=== PATIENT | male | born 1950 | race African-American/Black ===

== ENCOUNTER 2017-03-17 16:01 | Inpatient (IN) | payer MEDICARE, MEDICAID ==
[~2017-03-17] VITALS: Ht 177.8 cm; Wt 72.6 kg
[~2017-03-17 16:01] MED LIST: ASPIRIN81 M3 PO; LEVAQUIN500 MG ORAL; LISINOPRIL1 GM ORAL; MOM30 ML ORAL; MYLANTA30 M1 GT; NEPHROVITE1 TAB ORAL; NORVIR100 MG ORAL; REYATAZ300 MG ORAL; SEROQUEL300 MG ORAL; TRAZODONE HCL150 MG ORAL; TRUVADA 200 MG1 EAC1 ORAL; TYLENOL650 MG/20. ORAL; VITAMIN D1000 UNI1 ORAL
[2017-03-17 16:30] VITALS: BP 140/90
[2017-03-17] MEDS ORDERED: Zolpidem 5mg tab ORAL PRN (16:45)
[2017-03-17] MEDS ORDERED: Mylanta II UD 30ml ORAL PRN (16:45)
[2017-03-17] MEDS ORDERED: Miralax 17gm pkt ORAL PRN (16:45)
[2017-03-17] MEDS ORDERED: LORazepam Inj 2mg/ml 1ml IV PRN (16:45)
--- NOTE | 2017-03-17 16:57 | Emergency Room Report ---
History of Present Illness General Chief Complaint: Generalized Weakness Source: Medical Record, EMS Present Illness HPI 66-year-old male presents to ED for evaluation. Patient resides in snf. Patient has psychiatric history. Per EMS patient has poor appetite and not eating for the last several weeks. Upon arrival patient showing no signs of distress. No fevers or chills no chest pain shortness of breath. No other. Denies any other associated symptoms Allergies: Coded Allergies: No Known Allergies (Unverified , 06/10/15) Patient History Past Medical History: dementia, other - encephalopathy Past Surgical History: none Pertinent Family History: none Social History: Denies: smoking, alcohol use, drug use Immunizations: UTD Reviewed Nursing Documentation: PMH: Agreed, PSxH: Agreed Nursing Documentation-PMH Hx Hypertension: Yes Hx Neurological Problems: Yes - Encephalapothy Review of Systems All Other Systems: negative except mentioned in HPI Physical Exam Vital Signs Date Time Temp Pulse Resp B/P (MAP) Pulse Ox O2 Delivery O2 Flow Rate FiO2 03/17/17 16:04 97.5 75 20 155/95 96 Room Air Sp02 EP Interpretation: reviewed, normal General Appearance: other - encephalopathy Head: normocephalic, atraumatic Eyes: bilateral eye normal inspection, bilateral eye PERRL Neck: full range of motion, supple/symm/no masses Respiratory: chest non-tender, lungs clear, normal breath sounds, speaking full sentences Cardiovascular #1: regular rate, rhythm, no edema Cardiovascular #2: 2+ carotid (R), 2+ carotid (L), 2+ radial (R), 2+ radial (L) , 2+ dorsalis pedis (R), 2+ dorsalis pedis (L) Gastrointestinal: normal bowel sounds, non tender, soft, non-distended, no guarding, no rebound Rectal: deferred Genitourinary: normal inspection, no CVA tenderness Musculoskeletal: back normal, gait/station normal, normal range of motion, non- tender Neurologic: other - dementia Psychiatric: other - dementia Reflexes: 3+ bicep (R), 3+ bicep (L), 3+ tricep (R), 3+ tricep (L), 3+ knee (R) , 3+ knee (L) Skin: normal color, no rash, warm/dry, well hydrated Lymphatic: no adenopathy Medical Decision Making Diagnostic Impression: Primary Impression: Generalized weakness Additional Impressions: Dehydration Failure to thrive Qualified Codes: R62.7 - Adult failure to thrive ER Course Hospital Course 66-year-old male presenting to ED with generalized weakness, poor appetite Differential diagnoses include: Pneumonia, UTI, sepsis, dehydration, [place]/ unstable angina, failure to thrive Clinical course Patient placed on stretcher. After initial history and physical, I ordered labs , IV fluids, EKG, Labs - no leukocytosis, hb/hct stable, Na 147, EKG - NSR, no acute ischemic changes interpreted by me Case discussed with Dr Nation and they agreed to admit patient to their service for further care and support I feel this is a highly complex case requiring extensive working including EKG/ Rhythm strip, Xray/CT/US, Blood/urine lab work, repeat exams while in ED, and administration of strong opiates/narcotics for pain control, admission to hospital or close patient follow up. Diagnosis - generalized weakness, dehydration, FTT Patient admitted to floor in serious condition Labs Test 03/17/17 16:47 White Blood Count 6.6 K/UL (4.8-10.8) Red Blood Count 4.35 M/UL (4.70-6.10) Hemoglobin 14.6 G/DL (14.2-18.0) Hematocrit 43.3 % (42.0-52.0) Mean Corpuscular Volume 100 FL (80-99) Mean Corpuscular Hemoglobin 33.6 PG (27.0-31.0) Mean Corpuscular Hemoglobin Concent 33.7 G/DL (32.0-36.0) Red Cell Distribution Width 11.3 % (11.6-14.8) Platelet Count 190 K/UL (150-450) Mean Platelet Volume 5.0 FL (6.5-10.1) Neutrophils (%) (Auto) 56.1 % (45.0-75.0) Lymphocytes (%) (Auto) 35.1 % (20.0-45.0) Monocytes (%) (Auto) 6.2 % (1.0-10.0) Eosinophils (%) (Auto) 1.9 % (0.0-3.0) Basophils (%) (Auto) 0.7 % (0.0-2.0) Sodium Level 147 MMOL/L (136-145) Potassium Level 4.0 MMOL/L (3.5-5.1) Chloride Level 108 MMOL/L (98-107) Carbon Dioxide Level 31 MMOL/L (21-32) Anion Gap 8 mmol/L (5-15) Blood Urea Nitrogen 16 mg/dL (7-18) Creatinine 1.0 MG/DL (0.55-1.30) Estimat Glomerular Filtration Rate > 60 mL/min (>60) Glucose Level 89 MG/DL (74-106) Calcium Level 10.1 MG/DL (8.5-10.1) Total Bilirubin 0.5 MG/DL (0.2-1.0) Aspartate Amino Transf (AST/SGOT) 35 U/L (15-37) Alanine Aminotransferase (ALT/SGPT) 42 U/L (12-78) Alkaline Phosphatase 82 U/L (46-116) Troponin I 0.000 ng/mL (0.000-0.056) Total Protein 7.6 G/DL (6.4-8.2) Albumin 3.6 G/DL (3.4-5.0) Globulin 4.0 g/dL Albumin/Globulin Ratio 0.9 (1.0-2.7) Lipase 59 U/L (73-393) EKG Diagnostic Results Rate: normal Rhythm: NSR ST Segments: no acute changes ASA given to the pt in ED: No Rhythm Strip Diag. Results EP Interpretation: yes Rhythm: NSR, no PVC's, no ectopy Last Vital Signs Date Time Temp Pulse Resp B/P (MAP) Pulse Ox O2 Delivery O2 Flow Rate FiO2 03/17/17 16:04 97.5 75 20 155/95 96 Room Air Status: improved Disposition: ADMITTED INPATIENT Condition: Serious Referrals: YONATAN NATION (PCP) BRANDON BRAGA M.D. Mar 17, 2017 16:57
[2017-03-17 17:02] LABS: BASOPHILS % (AUTO) 0.7 % (0.0-2.0); EOSINOPHILS % (AUTO) 1.9 % (0.0-3.0); LYMPHOCYTES % (AUTO) 35.1 % (20.0-45.0); MEAN CORPUSCULAR HEMOGLOBIN 33.6 PG (27.0-31.0); MEAN CORPUSCULAR HGB CONC 33.7 G/DL (32.0-36.0); MEAN CORPUSCULAR VOLUME 100 FL (80-99); MONOCYTES % (AUTO) 6.2 % (1.0-10.0); NEUTROPHILS % (AUTO) 56.1 % (45.0-75.0); PLATELET COUNT 190 K/UL (150-450); RED BLOOD COUNT 4.35 M/UL (4.70-6.10); RED CELL DISTRIBUTION WIDTH 11.3 % (11.6-14.8); WHITE BLOOD COUNT 6.6 K/UL (4.8-10.8)
[2017-03-17 17:30] LABS: ALANINE AMINOTRANSFERASE 42 U/L (12-78); ALBUMIN/GLOBULIN RATIO 0.9 (1.0-2.7); ANION GAP 8 mmol/L (5-15); ASPARTATE AMINO TRANSFERASE 35 U/L (15-37); CALCIUM 10.1 MG/DL (8.5-10.1); CARBON DIOXIDE 31 MMOL/L (21-32); CHLORIDE 108 MMOL/L (98-107); GLOMERULAR FILTRATION RATE > 60 mL/min (>60); LIPASE 59 U/L (73-393); SODIUM 147 MMOL/L (136-145); TOTAL PROTEIN 7.6 G/DL (6.4-8.2)
[2017-03-17 17:37] VITALS: BP 106/42
[2017-03-17 18:24] VITALS: BP 120/81
[2017-03-17 20:00] VITALS: BP 132/92
[2017-03-17] MEDS: TraZODone HCl 25 mg tablet ORAL SCH (21:52)
[2017-03-17] MEDS: Heparin 5000 units/ml inj SUBQ SCH (21:55)
--- NOTE | 2017-03-17 22:40 | Infectious Diseases Prog Note ---
Assessment/Plan Problems: (1) HIV (human immunodeficiency virus infection) Assessment & Plan: will check his viral load and CD4 to assess his compliance with HIV meds and to rule out resistant to his current regimen , will screen for syphilis too , resume truvada and boosted darunavir . (2) Generalized weakness Assessment & Plan: recommend TSH check and PT/OT EVAL (3) Failure to thrive Assessment & Plan: will screen for syphilis and hypothyroidism Subjective Allergies: Coded Allergies: No Known Allergies (Unverified , 06/10/15) Objective Vital Signs Last 24 Hour Vital Signs Date Time Temp Pulse Resp B/P (MAP) Pulse Ox O2 Delivery O2 Flow Rate FiO2 03/17/17 20:00 97.7 80 21 132/92 95 03/17/17 18:27 91 03/17/17 18:24 97.0 18 120/81 93 Room Air 03/17/17 17:37 98.0 88 20 106/42 97 Room Air 03/17/17 17:37 97.5 88 20 106/42 97 Room Air 03/17/17 16:30 98.5 85 20 140/90 99 Room Air 03/17/17 16:04 97.5 75 20 155/95 96 Room Air Height (Feet): 5 Height (Inches): 10.00 Weight (Pounds): 180 Laboratory Tests Test 03/17/17 16:47 White Blood Count 6.6 K/UL (4.8-10.8) Red Blood Count 4.35 M/UL (4.70-6.10) L Hemoglobin 14.6 G/DL (14.2-18.0) Hematocrit 43.3 % (42.0-52.0) Mean Corpuscular Volume 100 FL (80-99) H Mean Corpuscular Hemoglobin 33.6 PG (27.0-31.0) H Mean Corpuscular Hemoglobin Concent 33.7 G/DL (32.0-36.0) Red Cell Distribution Width 11.3 % (11.6-14.8) L Platelet Count 190 K/UL (150-450) Mean Platelet Volume 5.0 FL (6.5-10.1) L Neutrophils (%) (Auto) 56.1 % (45.0-75.0) Lymphocytes (%) (Auto) 35.1 % (20.0-45.0) Monocytes (%) (Auto) 6.2 % (1.0-10.0) Eosinophils (%) (Auto) 1.9 % (0.0-3.0) Basophils (%) (Auto) 0.7 % (0.0-2.0) Sodium Level 147 MMOL/L (136-145) H Potassium Level 4.0 MMOL/L (3.5-5.1) Chloride Level 108 MMOL/L (98-107) H Carbon Dioxide Level 31 MMOL/L (21-32) Anion Gap 8 mmol/L (5-15) Blood Urea Nitrogen 16 mg/dL (7-18) Creatinine 1.0 MG/DL (0.55-1.30) Estimat Glomerular Filtration Rate > 60 mL/min (>60) Glucose Level 89 MG/DL (74-106) Calcium Level 10.1 MG/DL (8.5-10.1) Total Bilirubin 0.5 MG/DL (0.2-1.0) Aspartate Amino Transf (AST/SGOT) 35 U/L (15-37) Alanine Aminotransferase (ALT/SGPT) 42 U/L (12-78) Alkaline Phosphatase 82 U/L (46-116) Troponin I 0.000 ng/mL (0.000-0.056) Total Protein 7.6 G/DL (6.4-8.2) Albumin 3.6 G/DL (3.4-5.0) Globulin 4.0 g/dL Albumin/Globulin Ratio 0.9 (1.0-2.7) L Lipase 59 U/L (73-393) L Current Medications Medications (Trade) Dose Ordered Sig/Kaylin Route PRN Reason Start Time Stop Time Status Last Admin Dose Admin Acetaminophen (Tylenol) 650 mg Q4H PRN ORAL temp >100.5 F 03/17/17 16:45 04/16/17 16:44 Al Hydroxide/Mg Hydroxide (Mylanta II) 30 ml Q6H PRN ORAL dyspepsia 03/17/17 16:45 04/16/17 16:44 Dextrose (Dextrose 50%) STAT PRN IV Hypoglycemia 03/17/17 16:45 04/16/17 16:44 Emtricitabine/ Tenofovir (Truvada 200/ 300mg) 1 tab DAILY ORAL 03/18/17 09:00 04/17/17 08:59 UNV Heparin Sodium (Porcine) (Heparin 5000 units/ml) 5,000 units EVERY 12 HOURS SUBQ 03/17/17 21:00 04/16/17 20:59 03/17/17 21:55 Lorazepam (Ativan 2mg/ml 1ml) 0.5 mg Q4H PRN IV For Anxiety 03/17/17 16:45 03/24/17 16:44 Ondansetron HCl (Zofran) 4 mg Q6H PRN IVP Nausea & Vomiting 03/17/17 16:45 04/16/17 16:44 Polyethylene Glycol (Miralax) 17 gm HSPRN PRN ORAL Constipation 03/17/17 16:45 04/16/17 16:44 Ritonavir (Norvir) 100 mg DAILY ORAL 03/18/17 09:00 04/17/17 08:59 UNV Trazodone HCl (Desyrel) 25 mg BEDTIME ORAL 03/17/17 21:00 04/16/17 20:59 03/17/17 21:52 Zolpidem Tartrate (Ambien) 5 mg HSPRN PRN ORAL Insomnia 03/17/17 16:45 03/24/17 16:44 Caroline Gold M.D. Mar 17, 2017 22:40
[2017-03-18] VITALS: BP 134/73
[2017-03-18 04:00] VITALS: BP 130/76
[2017-03-18 06:58] LABS: BASOPHILS % (AUTO) 0.6 % (0.0-2.0); EOSINOPHILS % (AUTO) 0.6 % (0.0-3.0); LYMPHOCYTES % (AUTO) 22.4 % (20.0-45.0); MEAN CORPUSCULAR HEMOGLOBIN 35.1 PG (27.0-31.0); MEAN CORPUSCULAR HGB CONC 35.3 G/DL (32.0-36.0); MEAN CORPUSCULAR VOLUME 99 FL (80-99); MEAN PLATELET VOLUME 5.4 FL (6.5-10.1); MONOCYTES % (AUTO) 5.4 % (1.0-10.0); PLATELET COUNT 174 K/UL (150-450); RED BLOOD COUNT 3.86 M/UL (4.70-6.10); RED CELL DISTRIBUTION WIDTH 11.3 % (11.6-14.8); WHITE BLOOD COUNT 7.8 K/UL (4.8-10.8)
[2017-03-18 07:21] LABS: ALANINE AMINOTRANSFERASE 39 U/L (12-78); ALBUMIN/GLOBULIN RATIO 0.8 (1.0-2.7); ANION GAP 11 mmol/L (5-15); ASPARTATE AMINO TRANSFERASE 36 U/L (15-37); CALCIUM 8.9 MG/DL (8.5-10.1); CARBON DIOXIDE 28 MMOL/L (21-32); CHLORIDE 108 MMOL/L (98-107); CREATININE 0.9 MG/DL (0.55-1.30); GLOMERULAR FILTRATION RATE > 60 mL/min (>60); POTASSIUM 3.2 MMOL/L (3.5-5.1); SODIUM 147 MMOL/L (136-145); TOTAL PROTEIN 7.1 G/DL (6.4-8.2)
[2017-03-18 07:27] LABS: CHOLESTEROL 110 MG/DL (< 200); CHOLESTEROL/HDL RATIO 2.4 (3.3-4.4); THYROID STIMULATING HORMONE 0.745 uiU/mL (0.360-3.740)
[2017-03-18 08:00] VITALS: BP 148/76
[2017-03-18] MEDS ORDERED: Flu Vaccine Quadrivalent 0.5ml IM ONE (09:00)
[2017-03-18] MEDS: Heparin 5000 units/ml inj SUBQ SCH ×2 (10:56→21:20)
[2017-03-18 12:00] VITALS: BP 144/73
[2017-03-18] MEDS: Ritonavir 100mg tab ORAL SCH (13:00)
--- NOTE | 2017-03-18 13:36 | Infectious Diseases Prog Note ---
Assessment/Plan Problems: (1) HIV (human immunodeficiency virus infection) Assessment & Plan: await viral load and CD4 counts to assess his compliance with HIV meds and to rule out resistant to his current regimen , screening for syphilis is pending too , resume truvada and boosted darunavir . (2) Generalized weakness Assessment & Plan: recommend TSH check and PT/OT EVAL (3) Failure to thrive Assessment & Plan: will screen for syphilis and hypothyroidism Subjective ROS Limited/Unobtainable: Yes Allergies: Coded Allergies: No Known Allergies (Unverified , 06/10/15) Subjective he was lying in bed, alert, nonverbal, dosen't follow commands, NAD , has left hand bruises with bleeding Objective Vital Signs Last 24 Hour Vital Signs Date Time Temp Pulse Resp B/P (MAP) Pulse Ox O2 Delivery O2 Flow Rate FiO2 03/18/17 12:00 98.2 99 18 144/73 96 Room Air 03/18/17 08:00 97.9 89 18 148/76 92 Room Air 03/18/17 04:00 97.7 82 20 130/76 94 Room Air 03/18/17 00:00 97.9 87 21 134/73 93 Room Air 03/17/17 20:00 97.7 80 21 132/92 95 03/17/17 18:27 91 03/17/17 18:24 97.0 18 120/81 93 Room Air 03/17/17 17:37 98.0 88 20 106/42 97 Room Air 03/17/17 17:37 97.5 88 20 106/42 97 Room Air 03/17/17 16:30 98.5 85 20 140/90 99 Room Air 03/17/17 16:04 97.5 75 20 155/95 96 Room Air Height (Feet): 5 Height (Inches): 10.00 Weight (Pounds): 160 General Appearance: WD/WN, no acute distress HEENT: normocephalic, atraumatic, anicteric, mucous membranes moist Respiratory/Chest: chest wall non-tender, lungs clear, normal breath sounds, no respiratory distress, no accessory muscle use Cardiovascular: normal peripheral pulses, normal rate, regular rhythm, no gallop/murmur, no JVD Abdomen: normal bowel sounds, soft, non tender, no organomegaly, non distended , no mass, no scars Extremities: no cyanosis, no clubbing Skin: no rash, no lesions, no ulcers, other - bruises Neurologic/Psychiatric: alert, oriented x 3 Laboratory Tests Test 03/17/17 16:47 03/18/17 05:30 White Blood Count 6.6 K/UL (4.8-10.8) 7.8 K/UL (4.8-10.8) Red Blood Count 4.35 M/UL (4.70-6.10) L 3.86 M/UL (4.70-6.10) L Hemoglobin 14.6 G/DL (14.2-18.0) 13.5 G/DL (14.2-18.0) L Hematocrit 43.3 % (42.0-52.0) 38.3 % (42.0-52.0) L Mean Corpuscular Volume 100 FL (80-99) H 99 FL (80-99) Mean Corpuscular Hemoglobin 33.6 PG (27.0-31.0) H 35.1 PG (27.0-31.0) H Mean Corpuscular Hemoglobin Concent 33.7 G/DL (32.0-36.0) 35.3 G/DL (32.0-36.0) Red Cell Distribution Width 11.3 % (11.6-14.8) L 11.3 % (11.6-14.8) L Platelet Count 190 K/UL (150-450) 174 K/UL (150-450) Mean Platelet Volume 5.0 FL (6.5-10.1) L 5.4 FL (6.5-10.1) L Neutrophils (%) (Auto) 56.1 % (45.0-75.0) 71.0 % (45.0-75.0) Lymphocytes (%) (Auto) 35.1 % (20.0-45.0) 22.4 % (20.0-45.0) Monocytes (%) (Auto) 6.2 % (1.0-10.0) 5.4 % (1.0-10.0) Eosinophils (%) (Auto) 1.9 % (0.0-3.0) 0.6 % (0.0-3.0) Basophils (%) (Auto) 0.7 % (0.0-2.0) 0.6 % (0.0-2.0) Sodium Level 147 MMOL/L (136-145) H 147 MMOL/L (136-145) H Potassium Level 4.0 MMOL/L (3.5-5.1) 3.2 MMOL/L (3.5-5.1) L Chloride Level 108 MMOL/L (98-107) H 108 MMOL/L (98-107) H Carbon Dioxide Level 31 MMOL/L (21-32) 28 MMOL/L (21-32) Anion Gap 8 mmol/L (5-15) 11 mmol/L (5-15) Blood Urea Nitrogen 16 mg/dL (7-18) 17 mg/dL (7-18) Creatinine 1.0 MG/DL (0.55-1.30) 0.9 MG/DL (0.55-1.30) Estimat Glomerular Filtration Rate > 60 mL/min (>60) > 60 mL/min (>60) Glucose Level 89 MG/DL (74-106) 70 MG/DL (74-106) L Calcium Level 10.1 MG/DL (8.5-10.1) 8.9 MG/DL (8.5-10.1) Total Bilirubin 0.5 MG/DL (0.2-1.0) 0.7 MG/DL (0.2-1.0) Aspartate Amino Transf (AST/SGOT) 35 U/L (15-37) 36 U/L (15-37) Alanine Aminotransferase (ALT/SGPT) 42 U/L (12-78) 39 U/L (12-78) Alkaline Phosphatase 82 U/L (46-116) 77 U/L (46-116) Troponin I 0.000 ng/mL (0.000-0.056) Total Protein 7.6 G/DL (6.4-8.2) 7.1 G/DL (6.4-8.2) Albumin 3.6 G/DL (3.4-5.0) 3.2 G/DL (3.4-5.0) L Globulin 4.0 g/dL 3.9 g/dL Albumin/Globulin Ratio 0.9 (1.0-2.7) L 0.8 (1.0-2.7) L Lipase 59 U/L (73-393) L Lymphocytes Pending Hemoglobin A1c 5.0 % (4.3-6.0) Triglycerides Level 81 MG/DL (0-200) Cholesterol Level 110 MG/DL (< 200) LDL Cholesterol 41 mg/dL (<100) HDL Cholesterol 46 MG/DL (40-60) Cholesterol/HDL Ratio 2.4 (3.3-4.4) L Thyroid Stimulating Hormone (TSH) 0.745 uiU/mL (0.360-3.740) Percent CD3 Cells Pending Absolute CD3 Count Pending Percent CD4 Cells Pending Absolute CD4 Count Pending T-Lymphocyte CD4/CD8 Ratio Pending Percent CD8 Cells Pending Absolute CD8 Count Pending Rapid Plasma Reagin Pending HIV-1 RNA (PCR) log10 Value Pending HIV-1 RNA Ultraquantitative (PCR) Pending Current Medications Medications (Trade) Dose Ordered Sig/Kaylin Route PRN Reason Start Time Stop Time Status Last Admin Dose Admin Acetaminophen (Tylenol) 650 mg Q4H PRN ORAL temp >100.5 F 03/17/17 16:45 04/16/17 16:44 Al Hydroxide/Mg Hydroxide (Mylanta II) 30 ml Q6H PRN ORAL dyspepsia 03/17/17 16:45 04/16/17 16:44 Darunavir (Prezista) 800 mg DAILY ORAL 03/18/17 09:00 04/17/17 08:59 03/18/17 10:53 Dextrose (Dextrose 50%) STAT PRN IV Hypoglycemia 03/17/17 16:45 04/16/17 16:44 Emtricitabine/ Tenofovir (Truvada 200/ 300mg) 1 tab DAILY ORAL 03/18/17 13:00 04/17/17 12:59 Heparin Sodium (Porcine) (Heparin 5000 units/ml) 5,000 units EVERY 12 HOURS SUBQ 03/17/17 21:00 04/16/17 20:59 03/18/17 10:56 Lorazepam (Ativan 2mg/ml 1ml) 0.5 mg Q4H PRN IV For Anxiety 03/17/17 16:45 03/24/17 16:44 Ondansetron HCl (Zofran) 4 mg Q6H PRN IVP Nausea & Vomiting 03/17/17 16:45 04/16/17 16:44 Polyethylene Glycol (Miralax) 17 gm HSPRN PRN ORAL Constipation 03/17/17 16:45 04/16/17 16:44 Ritonavir (Norvir) 100 mg DAILY ORAL 03/18/17 13:00 04/17/17 12:59 Trazodone HCl (Desyrel) 25 mg BEDTIME ORAL 03/17/17 21:00 04/16/17 20:59 03/17/17 21:52 Zolpidem Tartrate (Ambien) 5 mg HSPRN PRN ORAL Insomnia 03/17/17 16:45 03/24/17 16:44 Caroline Gold M.D. Mar 18, 2017 13:36
--- NOTE | 2017-03-18 15:44 | Consultation ---
History of Present Illness General Date patient seen: Mar 18, 2017 Chief Complaint: Generalized Weakness Reason for Consultation: inpatient management Present Illness HPI 66-year-old male with hx of HIV, dementia, psychiatric disorder, group home resident presents to ED for evaluation of poor appetite and not eating for the last several weeks. Upon arrival patient showing no signs of distress. No fevers or chills no chest pain shortness of breath. Pt can not give any history and all information is obtained form the medical records. He looks awake and trying to talk without making any sense. Allergies: Coded Allergies: No Known Allergies (Unverified , 06/10/15) Medication History Scheduled Atazanavir Sulfate (Reyataz), 300 MG ORAL DAILY, (Reported) Cholecalciferol (Vitamin D3)* (Vitamin D*), 1,000 UNIT ORAL DAILY, (Reported) Emtricitabine/Tenofovir 200-300MG* (Truvada 200-300MG*), 1 TAB ORAL DAILY, ( Reported) Levofloxacin* (Levaquin*), 500 MG ORAL DAILY Lisinopril (Lisinopril), 20 MG ORAL DAILY, (Reported) Quetiapine Fumarate (Seroquel), 150 MG ORAL HS, (Reported) Ritonavir* (Norvir*), 100 MG ORAL DAILY, (Reported) Trazodone* (Trazodone*), 25 MG ORAL BEDTIME, (Reported) Vitamin B Cmplx/Vit C/Folic AC (Nephro-Bianca Tablet), 1 TAB ORAL DAILY, (Reported ) Scheduled PRN Acetaminophen (Acetaminophen), 650 MG ORAL Q6H PRN for Prn Headache/Temp > 101, (Reported) Magnesium Hydroxide (Milk of Magnesia), 30 ML ORAL Q6HR PRN for Constipation, ( Reported) Miscellaneous Medications Al Hydroxide/mg Hydroxide (Mag-Al Liquid), 30 ML GT, (Reported) Aspirin (Aspirin), 81 MG PO, (Reported) Patient History Healthcare decision maker N Resuscitation status Full Code Advanced Directive on File Past Medical/Surgical History Past Medical/Surgical History: (1) HIV (human immunodeficiency virus infection) (2) Gilbert disease Review of Systems Constitutional: Reports: no symptoms, malaise Physical Exam General Appearance: cachetic Lines, tubes and drains: peripheral, central line HEENT: normocephalic, atraumatic Neck: non-tender, normal alignment, supple Respiratory/Chest: chest wall non-tender, lungs clear, normal breath sounds Cardiovascular/Chest: normal peripheral pulses, normal rate, regular rhythm Abdomen: normal bowel sounds, soft Genitourinary/Rectal: normal genital exam, normal rectal exam Extremities: normal range of motion, non-tender Neurologic: cardiac monitor II-XII grossly normal, abnormal gait Last 24 Hour Vital Signs Date Time Temp Pulse Resp B/P (MAP) Pulse Ox O2 Delivery O2 Flow Rate FiO2 03/18/17 12:00 98.2 99 18 144/73 96 Room Air 03/18/17 08:00 97.9 89 18 148/76 92 Room Air 03/18/17 04:00 97.7 82 20 130/76 94 Room Air 03/18/17 00:00 97.9 87 21 134/73 93 Room Air 03/17/17 20:00 97.7 80 21 132/92 95 03/17/17 18:27 91 03/17/17 18:24 97.0 18 120/81 93 Room Air 03/17/17 17:37 98.0 88 20 106/42 97 Room Air 03/17/17 17:37 97.5 88 20 106/42 97 Room Air 03/17/17 16:30 98.5 85 20 140/90 99 Room Air 03/17/17 16:04 97.5 75 20 155/95 96 Room Air Laboratory Tests Test 03/17/17 16:47 03/18/17 05:30 White Blood Count 6.6 K/UL (4.8-10.8) 7.8 K/UL (4.8-10.8) Red Blood Count 4.35 M/UL (4.70-6.10) L 3.86 M/UL (4.70-6.10) L Hemoglobin 14.6 G/DL (14.2-18.0) 13.5 G/DL (14.2-18.0) L Hematocrit 43.3 % (42.0-52.0) 38.3 % (42.0-52.0) L Mean Corpuscular Volume 100 FL (80-99) H 99 FL (80-99) Mean Corpuscular Hemoglobin 33.6 PG (27.0-31.0) H 35.1 PG (27.0-31.0) H Mean Corpuscular Hemoglobin Concent 33.7 G/DL (32.0-36.0) 35.3 G/DL (32.0-36.0) Red Cell Distribution Width 11.3 % (11.6-14.8) L 11.3 % (11.6-14.8) L Platelet Count 190 K/UL (150-450) 174 K/UL (150-450) Mean Platelet Volume 5.0 FL (6.5-10.1) L 5.4 FL (6.5-10.1) L Neutrophils (%) (Auto) 56.1 % (45.0-75.0) 71.0 % (45.0-75.0) Lymphocytes (%) (Auto) 35.1 % (20.0-45.0) 22.4 % (20.0-45.0) Monocytes (%) (Auto) 6.2 % (1.0-10.0) 5.4 % (1.0-10.0) Eosinophils (%) (Auto) 1.9 % (0.0-3.0) 0.6 % (0.0-3.0) Basophils (%) (Auto) 0.7 % (0.0-2.0) 0.6 % (0.0-2.0) Sodium Level 147 MMOL/L (136-145) H 147 MMOL/L (136-145) H Potassium Level 4.0 MMOL/L (3.5-5.1) 3.2 MMOL/L (3.5-5.1) L Chloride Level 108 MMOL/L (98-107) H 108 MMOL/L (98-107) H Carbon Dioxide Level 31 MMOL/L (21-32) 28 MMOL/L (21-32) Anion Gap 8 mmol/L (5-15) 11 mmol/L (5-15) Blood Urea Nitrogen 16 mg/dL (7-18) 17 mg/dL (7-18) Creatinine 1.0 MG/DL (0.55-1.30) 0.9 MG/DL (0.55-1.30) Estimat Glomerular Filtration Rate > 60 mL/min (>60) > 60 mL/min (>60) Glucose Level 89 MG/DL (74-106) 70 MG/DL (74-106) L Calcium Level 10.1 MG/DL (8.5-10.1) 8.9 MG/DL (8.5-10.1) Total Bilirubin 0.5 MG/DL (0.2-1.0) 0.7 MG/DL (0.2-1.0) Aspartate Amino Transf (AST/SGOT) 35 U/L (15-37) 36 U/L (15-37) Alanine Aminotransferase (ALT/SGPT) 42 U/L (12-78) 39 U/L (12-78) Alkaline Phosphatase 82 U/L (46-116) 77 U/L (46-116) Troponin I 0.000 ng/mL (0.000-0.056) Total Protein 7.6 G/DL (6.4-8.2) 7.1 G/DL (6.4-8.2) Albumin 3.6 G/DL (3.4-5.0) 3.2 G/DL (3.4-5.0) L Globulin 4.0 g/dL 3.9 g/dL Albumin/Globulin Ratio 0.9 (1.0-2.7) L 0.8 (1.0-2.7) L Lipase 59 U/L (73-393) L Lymphocytes Pending Hemoglobin A1c 5.0 % (4.3-6.0) Triglycerides Level 81 MG/DL (0-200) Cholesterol Level 110 MG/DL (< 200) LDL Cholesterol 41 mg/dL (<100) HDL Cholesterol 46 MG/DL (40-60) Cholesterol/HDL Ratio 2.4 (3.3-4.4) L Thyroid Stimulating Hormone (TSH) 0.745 uiU/mL (0.360-3.740) Percent CD3 Cells Pending Absolute CD3 Count Pending Percent CD4 Cells Pending Absolute CD4 Count Pending T-Lymphocyte CD4/CD8 Ratio Pending Percent CD8 Cells Pending Absolute CD8 Count Pending Rapid Plasma Reagin Pending HIV-1 RNA (PCR) log10 Value Pending HIV-1 RNA Ultraquantitative (PCR) Pending Height (Feet): 5 Height (Inches): 10.00 Weight (Pounds): 160 Medications Current Medications Medications (Trade) Dose Ordered Sig/Kaylin Route PRN Reason Start Time Stop Time Status Last Admin Dose Admin Acetaminophen (Tylenol) 650 mg Q4H PRN ORAL temp >100.5 F 03/17/17 16:45 04/16/17 16:44 Al Hydroxide/Mg Hydroxide (Mylanta II) 30 ml Q6H PRN ORAL dyspepsia 03/17/17 16:45 04/16/17 16:44 Darunavir (Prezista) 800 mg DAILY ORAL 03/18/17 09:00 04/17/17 08:59 03/18/17 10:53 Dextrose (Dextrose 50%) STAT PRN IV Hypoglycemia 03/17/17 16:45 04/16/17 16:44 Emtricitabine/ Tenofovir (Truvada 200/ 300mg) 1 tab DAILY ORAL 03/18/17 13:00 04/17/17 12:59 Heparin Sodium (Porcine) (Heparin 5000 units/ml) 5,000 units EVERY 12 HOURS SUBQ 03/17/17 21:00 04/16/17 20:59 03/18/17 10:56 Lorazepam (Ativan 2mg/ml 1ml) 0.5 mg Q4H PRN IV For Anxiety 03/17/17 16:45 03/24/17 16:44 Ondansetron HCl (Zofran) 4 mg Q6H PRN IVP Nausea & Vomiting 03/17/17 16:45 04/16/17 16:44 Polyethylene Glycol (Miralax) 17 gm HSPRN PRN ORAL Constipation 03/17/17 16:45 04/16/17 16:44 Ritonavir (Norvir) 100 mg DAILY ORAL 03/18/17 13:00 04/17/17 12:59 Trazodone HCl (Desyrel) 25 mg BEDTIME ORAL 03/17/17 21:00 04/16/17 20:59 03/17/17 21:52 Zolpidem Tartrate (Ambien) 5 mg HSPRN PRN ORAL Insomnia 03/17/17 16:45 03/24/17 16:44 Assessment/Plan Problem List: (1) Failure to thrive ICD Codes: ONB5430 - Reserved for [id number] codable problem concepts SNOMED: 60438417 Qualifiers: Qualified Codes: R62.7 - Adult failure to thrive (2) Generalized weakness ICD Codes: R53.1 - Weakness SNOMED: 46883724 (3) Dehydration ICD Codes: E86.0 - Dehydration SNOMED: 34863079 (4) Episode of generalized weakness ICD Codes: R53.1 - Weakness SNOMED: 58562063 (5) UTI (urinary tract infection) ICD Codes: N39.0 - Urinary tract infection, site not specified SNOMED: 60236343 (6) HIV (human immunodeficiency virus infection) ICD Codes: B20 - Human immunodeficiency virus [HIV] disease SNOMED: 67004162 Assessment/Plan calorie count swallow study neuro evaluation psych evaluation might need PEG feeding f/u HIV status symptomatic treatment. [place] COLON Mar 18, 2017 15:44
[2017-03-18 16:00] VITALS: BP 152/61
--- NOTE | 2017-03-18 16:12 | GI Initial Consult Note ---
Davalos,Claudia Migel N.P. 03/18/17 1612: History of Present Illness General Date patient seen: Mar 18, 2017 Time patient seen: 16:02 Reason for Hospitalization: Generalized Weakness Referring physician: [place] REGALADO Reason for Consultation: VOMITING Present Illness HPI 66-year-old male presents to ED for evaluation. Patient resides in assisted. Patient has psychiatric history. Per EMS patient has poor appetite and not eating for the last several weeks. Upon arrival patient showing no signs of distress. No fevers or chills no chest pain shortness of breath. No other. Denies any other associated symptoms. GI consulted for vomiting. HPI as noted above. ROS limited, patient is non verbal. Seen on floor, awake with no active s/sx of N/V/D. Presents today with Hx of tobacco use. Unknown history of endoscopic/colonoscopy. Home Meds Active Scripts Levofloxacin* (LEVAQUIN*) 500 Mg Tablet, 500 MG ORAL DAILY, #5 TAB Prov:Reina Fink COMMUNICATION ANALYST 06/13/15 Reported Medications Al Hydroxide/mg Hydroxide (Mag-Al Liquid) 30 Ml Susp, 30 ML GT 06/10/15 Magnesium Hydroxide (Milk of Magnesia) 30 Ml Susp, 30 ML ORAL Q6HR Y for Constipation 06/10/15 Acetaminophen (Acetaminophen) 650 Mg/20.3 Ml Soln, 650 MG ORAL Q6H Y for Prn Headache/Temp > 101, ML 0 Refills 06/10/15 Cholecalciferol (Vitamin D3)* (VITAMIN D*) 1,000 Unit Tablet, 1000 UNIT ORAL DAILY, #30 TAB 06/10/15 Vitamin B Cmplx/Vit C/Folic AC (Nephro-Bianca Tablet) 1 Tab Tab, 1 TAB ORAL DAILY , #30 TAB 0 Refills 06/10/15 Atazanavir Sulfate (REYATAZ) 300 Mg Capsule, 300 MG ORAL DAILY, CAP 06/10/15 Emtricitabine/Tenofovir 200-300MG* (TRUVADA 200-300MG*) 1 Each Tablet, 1 TAB ORAL DAILY, TAB 06/10/15 Ritonavir* (NORVIR*) 100 Mg Capsule, 100 MG ORAL DAILY, #60 CAP 06/10/15 Aspirin (Aspirin) 81 Mg Tab.chew, 81 MG PO, TAB 1/30/16 Lisinopril (LISINOPRIL) 1 Gm Powder, 20 MG ORAL DAILY, GM 06/10/15 Trazodone* (TRAZODONE*) 150 Mg Tablet, 25 MG ORAL BEDTIME, TAB 06/10/15 Quetiapine Fumarate (SEROQUEL) 300 Mg Tablet, 150 MG ORAL HS, TAB 06/10/15 Med list reviewed/reconciled: Yes Allergies: Coded Allergies: No Known Allergies (Unverified , 06/10/15) Patient History Limited by: medical condition History Provided By: Medical Record PMH Narrative Past Medical History: dementia, other - encephalopathy Past Surgical History: none Pertinent Family History: none Social History: Denies: smoking, alcohol use, drug use Immunizations: UTD Reviewed Nursing Documentation: PMH: Agreed, PSxH: Agreed Nursing Documentation-PMH Hx Hypertension: Yes Hx Neurological Problems: Yes - Encephalopathy Review of Systems All Other Systems: limited Physical Exam Vital Signs Date Time Temp Pulse Resp B/P (MAP) Pulse Ox O2 Delivery O2 Flow Rate FiO2 03/17/17 16:04 97.5 75 20 155/95 96 Room Air Sp02 EP Interpretation: reviewed, normal Labs Laboratory Tests Test 03/17/17 16:47 03/18/17 05:30 White Blood Count 6.6 K/UL (4.8-10.8) 7.8 K/UL (4.8-10.8) Red Blood Count 4.35 M/UL (4.70-6.10) L 3.86 M/UL (4.70-6.10) L Hemoglobin 14.6 G/DL (14.2-18.0) 13.5 G/DL (14.2-18.0) L Hematocrit 43.3 % (42.0-52.0) 38.3 % (42.0-52.0) L Mean Corpuscular Volume 100 FL (80-99) H 99 FL (80-99) Mean Corpuscular Hemoglobin 33.6 PG (27.0-31.0) H 35.1 PG (27.0-31.0) H Mean Corpuscular Hemoglobin Concent 33.7 G/DL (32.0-36.0) 35.3 G/DL (32.0-36.0) Red Cell Distribution Width 11.3 % (11.6-14.8) L 11.3 % (11.6-14.8) L Platelet Count 190 K/UL (150-450) 174 K/UL (150-450) Mean Platelet Volume 5.0 FL (6.5-10.1) L 5.4 FL (6.5-10.1) L Neutrophils (%) (Auto) 56.1 % (45.0-75.0) 71.0 % (45.0-75.0) Lymphocytes (%) (Auto) 35.1 % (20.0-45.0) 22.4 % (20.0-45.0) Monocytes (%) (Auto) 6.2 % (1.0-10.0) 5.4 % (1.0-10.0) Eosinophils (%) (Auto) 1.9 % (0.0-3.0) 0.6 % (0.0-3.0) Basophils (%) (Auto) 0.7 % (0.0-2.0) 0.6 % (0.0-2.0) Sodium Level 147 MMOL/L (136-145) H 147 MMOL/L (136-145) H Potassium Level 4.0 MMOL/L (3.5-5.1) 3.2 MMOL/L (3.5-5.1) L Chloride Level 108 MMOL/L (98-107) H 108 MMOL/L (98-107) H Carbon Dioxide Level 31 MMOL/L (21-32) 28 MMOL/L (21-32) Anion Gap 8 mmol/L (5-15) 11 mmol/L (5-15) Blood Urea Nitrogen 16 mg/dL (7-18) 17 mg/dL (7-18) Creatinine 1.0 MG/DL (0.55-1.30) 0.9 MG/DL (0.55-1.30) Estimat Glomerular Filtration Rate > 60 mL/min (>60) > 60 mL/min (>60) Glucose Level 89 MG/DL (74-106) 70 MG/DL (74-106) L Calcium Level 10.1 MG/DL (8.5-10.1) 8.9 MG/DL (8.5-10.1) Total Bilirubin 0.5 MG/DL (0.2-1.0) 0.7 MG/DL (0.2-1.0) Aspartate Amino Transf (AST/SGOT) 35 U/L (15-37) 36 U/L (15-37) Alanine Aminotransferase (ALT/SGPT) 42 U/L (12-78) 39 U/L (12-78) Alkaline Phosphatase 82 U/L (46-116) 77 U/L (46-116) Troponin I 0.000 ng/mL (0.000-0.056) Total Protein 7.6 G/DL (6.4-8.2) 7.1 G/DL (6.4-8.2) Albumin 3.6 G/DL (3.4-5.0) 3.2 G/DL (3.4-5.0) L Globulin 4.0 g/dL 3.9 g/dL Albumin/Globulin Ratio 0.9 (1.0-2.7) L 0.8 (1.0-2.7) L Lipase 59 U/L (73-393) L Lymphocytes Pending Hemoglobin A1c 5.0 % (4.3-6.0) Triglycerides Level 81 MG/DL (0-200) Cholesterol Level 110 MG/DL (< 200) LDL Cholesterol 41 mg/dL (<100) HDL Cholesterol 46 MG/DL (40-60) Cholesterol/HDL Ratio 2.4 (3.3-4.4) L Thyroid Stimulating Hormone (TSH) 0.745 uiU/mL (0.360-3.740) Percent CD3 Cells Pending Absolute CD3 Count Pending Percent CD4 Cells Pending Absolute CD4 Count Pending T-Lymphocyte CD4/CD8 Ratio Pending Percent CD8 Cells Pending Absolute CD8 Count Pending Rapid Plasma Reagin Pending HIV-1 RNA (PCR) log10 Value Pending HIV-1 RNA Ultraquantitative (PCR) Pending General Appearance: no apparent distress, alert Head: normocephalic EENT: PERRL/EOMI Neck: supple Respiratory: no respiratory distress Cardiovascular: normal rate Gastrointestinal: normal inspection, non tender, soft, normal bowel sounds, non -distended Rectal: deferred Genitourinary: deferred Musculoskeletal: normal inspection, back normal Neurologic: alert, responsive Skin: normal inspection, normal color, no rash, warm/dry, palpation normal, well hydrated Lymphatic: normal inspection, no adenopathy Current Medications Current Medications Medications (Trade) Dose Ordered Sig/Kaylin Route PRN Reason Start Time Stop Time Status Last Admin Dose Admin Acetaminophen (Tylenol) 650 mg Q4H PRN ORAL temp >100.5 F 03/17/17 16:45 04/16/17 16:44 Al Hydroxide/Mg Hydroxide (Mylanta II) 30 ml Q6H PRN ORAL dyspepsia 03/17/17 16:45 04/16/17 16:44 Darunavir (Prezista) 800 mg DAILY ORAL 03/18/17 09:00 04/17/17 08:59 03/18/17 10:53 Dextrose (Dextrose 50%) STAT PRN IV Hypoglycemia 03/17/17 16:45 04/16/17 16:44 Emtricitabine/ Tenofovir (Truvada 200/ 300mg) 1 tab DAILY ORAL 03/18/17 13:00 04/17/17 12:59 Heparin Sodium (Porcine) (Heparin 5000 units/ml) 5,000 units EVERY 12 HOURS SUBQ 03/17/17 21:00 04/16/17 20:59 03/18/17 10:56 Lorazepam (Ativan 2mg/ml 1ml) 0.5 mg Q4H PRN IV For Anxiety 03/17/17 16:45 03/24/17 16:44 Ondansetron HCl (Zofran) 4 mg Q6H PRN IVP Nausea & Vomiting 03/17/17 16:45 04/16/17 16:44 Polyethylene Glycol (Miralax) 17 gm HSPRN PRN ORAL Constipation 03/17/17 16:45 04/16/17 16:44 Ritonavir (Norvir) 100 mg DAILY ORAL 03/18/17 13:00 04/17/17 12:59 Trazodone HCl (Desyrel) 25 mg BEDTIME ORAL 03/17/17 21:00 04/16/17 20:59 03/17/17 21:52 Zolpidem Tartrate (Ambien) 5 mg HSPRN PRN ORAL Insomnia 03/17/17 16:45 03/24/17 16:44 GI: Plan Problems: (1) Generalized weakness (2) Failure to thrive (3) HIV (human immunodeficiency virus infection) (4) Gilbert disease (5) Episode of generalized weakness (6) Dehydration (7) Altered mental status (8) Smoking greater than 20 pack years Plan possible PEG if indicated supportive care/symptomatic treatment ST evaluation calorie count zofran prn, reglan if vomiting persists PO/IV hydration push PO 1:1 feeder fu labs Discussed with Dr. Navas. Thank you for this patient referral, we will follow. AIDAN NAVAS 03/21/17 1006: History of Present Illness General Reason for Hospitalization: Generalized Weakness Present Illness Home Meds Active Scripts Levofloxacin* (LEVAQUIN*) 500 Mg Tablet, 500 MG ORAL DAILY, #5 TAB Prov:Reina Fink COMMUNICATION ANALYST 06/13/15 Reported Medications Al Hydroxide/mg Hydroxide (Mag-Al Liquid) 30 Ml Susp, 30 ML GT 06/10/15 Magnesium Hydroxide (Milk of Magnesia) 30 Ml Susp, 30 ML ORAL Q6HR Y for Constipation 06/10/15 Acetaminophen (Acetaminophen) 650 Mg/20.3 Ml Soln, 650 MG ORAL Q6H Y for Prn Headache/Temp > 101, ML 0 Refills 06/10/15 Cholecalciferol (Vitamin D3)* (VITAMIN D*) 1,000 Unit Tablet, 1000 UNIT ORAL DAILY, #30 TAB 06/10/15 Vitamin B Cmplx/Vit C/Folic AC (Nephro-Bianca Tablet) 1 Tab Tab, 1 TAB ORAL DAILY , #30 TAB 0 Refills 06/10/15 Atazanavir Sulfate (REYATAZ) 300 Mg Capsule, 300 MG ORAL DAILY, CAP 06/10/15 Emtricitabine/Tenofovir 200-300MG* (TRUVADA 200-300MG*) 1 Each Tablet, 1 TAB ORAL DAILY, TAB 06/10/15 Ritonavir* (NORVIR*) 100 Mg Capsule, 100 MG ORAL DAILY, #60 CAP 06/10/15 Aspirin (Aspirin) 81 Mg Tab.chew, 81 MG PO, TAB 06/10/15 Lisinopril (LISINOPRIL) 1 Gm Powder, 20 MG ORAL DAILY, GM 06/10/15 Trazodone* (TRAZODONE*) 150 Mg Tablet, 25 MG ORAL BEDTIME, TAB 06/10/15 Quetiapine Fumarate (SEROQUEL) 300 Mg Tablet, 150 MG ORAL HS, TAB 06/10/15 Allergies: Coded Allergies: No Known Allergies (Unverified , 06/10/15) GI: Plan Plan The patient was seen and examined at bedside and all new and available data was reviewed in the patients chart. I agree with the above findings, impression and plan. (Patient seen earlier today. Signature stamp does not reflect patient encounter time.). - MD Susannah Barahona Anh Khoi N.P. Mar 18, 2017 16:12 AIDAN NAVAS Mar 21, 2017 10:06
--- NOTE | 2017-03-18 16:38 | Cardiology Report ---
APPROVED REPORT EKG Measurement Heart [id number] SD [id number] [id number] Normal sinus rhythm Normal ECG
--- NOTE | 2017-03-18 17:00 | Consultation ---
DATE OF CONSULTATION: INFECTIOUS DISEASES CONSULTATION REQUESTING PHYSICIAN: Maikel Mckenzie D.O. REASON FOR CONSULTATION: HIV care and mediation management for HIV. HISTORY OF PRESENT ILLNESS: The patient is a 66-year-old male with past medical history of psychiatric disorder, encephalopathy and hypertension, who was brought into [facility] from longterm due to poor appetite and failure to thrive with weakness. The patient had no fever or chills. No shortness of breath. No other symptoms at the longterm. His temperature was 97.5 degrees in the emergency room, saturating 96% on room air. The patient had well known history of HIV and he is on Truvada and boosted atazanavir for his HIV care. So, I was consulted by the primary provider for medication treatment of his HIV and for his HIV care too. As of note, the patient is psych, poor historian, cannot provide any history. History was mainly obtained from the medical record. PAST MEDICAL HISTORY: Significant for dementia, HIV, and encephalopathy. PAST SURGICAL HISTORY: Negative. MEDICATIONS: The patient on Truvada and boosted atazanavir at the longterm. For the rest of his medications, please refer to [facility]. ALLERGIES: No known drug allergy. SOCIAL HISTORY: The patient lives in the longterm. No recent drugs, tobacco or alcohol. FAMILY HISTORY: Not contributory. REVIEW OF SYSTEMS: Unable to obtain at this point. The patient is poor historian. PHYSICAL EXAMINATION: GENERAL: The patient is a middle-aged male, lying in bed, unresponsive, nonverbal, alert, had repetitive movement in his mouth, does not follow command. VITAL SIGNS: Temperature 97.7 degrees, pulse 80, respiration 21, blood pressure 132/92, and saturation 95% on room air. HEENT: Normocephalic and atraumatic. Pupils reactive to light. Moist oral mucosa. No exudate. NECK: Supple. No lymphadenopathy. CARDIOVASCULAR: Regular rate and rhythm. No murmur. LUNGS: Clear bilaterally. No wheezing or rhonchi. Normal breathing effort. ABDOMEN: Soft, nontender and nondistended. Positive bowel sounds. No hepatosplenomegaly or ascites. EXTREMITIES: No edema or cyanosis. Bruises on both hands with bleeding, mainly on the left hand bruises. LABORATORY AND DIAGNOSTIC DATA: White count of 6.6, hemoglobin 14.6, and platelet count of 190,000. BUN 16, creatinine 1. AST of 35 and ALT of 42. Imaging, cannot see any in the system done. ASSESSMENT AND RECOMMENDATION: 1. Human immunodeficiency virus. We will check his viral load and CD4 count as he is compliance with his human immunodeficiency virus medications and to rule out resistant to his current regimen. We will screen him for syphilis too, resume Truvada and replace atazanavir with darunavir since it is not available in this hospital. Continue ritonavir. Follow up with HIV provider as an outpatient. 2. Generalized weakness. Recommend TSH check and PT/OT evaluation. Further management as per primary care. 3. Failure to thrive. We will screen for syphilis and hypothyroidism too. Thank you for the consult. ID will continue to follow. Caroline Gold M.D. DR: KERI JOB#: [id number] CC:
--- NOTE | 2017-03-18 17:45 | History and Physical Report ---
DATE OF ADMISSION: 03/17/2017 ATTENDING PHYSICIAN: Maikel Mckenzie D.O. CONSULTANTS: 1. Vinay Harman M.D. 2. Bety Mosquera M.D. 3. Ml Huynh M.D. CHIEF COMPLAINT: Failure to thrive, weakness, and dehydration. BRIEF HISTORY: This is a 66-year-old male from [facility], presented with increased confusion, lethargy, weakness, not eating well. The patient diagnosed with failure to thrive, encephalopathy, dehydration, weakness, admitted to medical floor for further treatment. Currently confused in bed, not talking much. REVIEW OF SYSTEMS: Unavailable. PAST MEDICAL HISTORY: Hypertension, COPD, dementia, HIV, and aphasia. PAST SURGICAL HISTORY: None. MEDICATIONS: Truvada, Norvir, Prezista, Desyrel, heparin, Tylenol, Zofran, Mylanta, and Ambien. ALLERGIES: Denied. SOCIAL HISTORY: No smoking. No alcohol. No intravenous drug abuse. FAMILY HISTORY: Noncontributory. PHYSICAL EXAMINATION: GENERAL: Calm in bed, oriented x3, in no acute distress. VITAL SIGNS: Temperature is 97 degrees, pulse 89, respirations 18, and blood pressure 148/76. CARDIOVASCULAR: No murmur. LUNGS: Distant and clear. ABDOMEN: Bowel sounds are positive. Nontender and nondistended. EXTREMITIES: No cyanosis, clubbing, or edema. NEUROLOGIC: The patient moves all extremities. Slight writhing movement with mouth and neck. LABORATORY DATA: Labs at this time show hemoglobin 13.5, otherwise, CBC is normal. BMP shows sodium 147, potassium 3.2, chloride 108, glucose 70, BUN and creatinine 17/0.9. ASSESSMENT: 1. Failure to thrive. 2. Encephalopathy. 3. Hypernatremia. 4. Dehydration. 5. Weakness. 6. Hypertension. 7. Chronic obstructive pulmonary disease. 8. Dementia. 9. Anemia. 10. Human immunodeficiency virus. 11. Aphasia. PLAN: 1. Continue premedications. 2. OT, PT, and dietary evaluation. 3. CBC and BMP in the morning. 4. Dr. Harman, Dr. Mosquera, Dr. Huynh, Dr. Mcmillan, and Dr. Alonso to consult. We will continue to follow this patient medically. Maikel Mckenzie D.O. DR: ISMA JOB#: [id number] CC:
[2017-03-18 20:00] VITALS: BP 142/96
[2017-03-18] MEDS: TraZODone HCl 25 mg tablet ORAL SCH (21:19)
[2017-03-19] VITALS: BP 114/51
[2017-03-19 04:00] VITALS: BP 105/71
[2017-03-19 06:39] LABS: BASOPHILS % (AUTO) 0.4 % (0.0-2.0); LYMPHOCYTES % (AUTO) 27.5 % (20.0-45.0); MEAN CORPUSCULAR HEMOGLOBIN 35.7 PG (27.0-31.0); MEAN CORPUSCULAR HGB CONC 35.8 G/DL (32.0-36.0); MEAN CORPUSCULAR VOLUME 100 FL (80-99); MONOCYTES % (AUTO) 6.6 % (1.0-10.0); NEUTROPHILS % (AUTO) 64.5 % (45.0-75.0); PLATELET COUNT 167 K/UL (150-450); RED BLOOD COUNT 3.77 M/UL (4.70-6.10); RED CELL DISTRIBUTION WIDTH 11.9 % (11.6-14.8); WHITE BLOOD COUNT 6.7 K/UL (4.8-10.8)
[2017-03-19 06:52] LABS: ANION GAP 10 mmol/L (5-15); CALCIUM 9.2 MG/DL (8.5-10.1); CARBON DIOXIDE 30 MMOL/L (21-32); CHLORIDE 108 MMOL/L (98-107); GLOMERULAR FILTRATION RATE > 60 mL/min (>60); POTASSIUM 3.3 MMOL/L (3.5-5.1); SODIUM 147 MMOL/L (136-145)
[2017-03-19 07:49] VITALS: BP 142/68
[2017-03-19] MEDS: Heparin 5000 units/ml inj SUBQ SCH ×2 (08:46→21:11)
[2017-03-19] MEDS: Ritonavir 100mg tab ORAL SCH (08:46)
--- NOTE | 2017-03-19 11:23 | GI Progress Note ---
Assessment/Plan Problems: (1) Altered mental status ICD Codes: R41.82 - Altered mental status, unspecified SNOMED: 591494580 (2) Episode of generalized weakness ICD Codes: R53.1 - Weakness SNOMED: 84903339 (3) Gilbert disease ICD Codes: E80.4 - Gilbert syndrome SNOMED: 61605266 (4) Dehydration ICD Codes: E86.0 - Dehydration SNOMED: 80424907 (5) Generalized weakness ICD Codes: R53.1 - Weakness SNOMED: 14554257 (6) Hyperbilirubinemia ICD Codes: E80.6 - Other disorders of bilirubin metabolism SNOMED: 20439675 (7) Smoking greater than 20 pack years ICD Codes: F17.210 - Nicotine dependence, cigarettes, uncomplicated SNOMED: 24678294 Status: unchanged Status Narrative Discussed with Dr. Harman. Assessment/Plan possible PEG if indicated supportive care/symptomatic treatment fu ST evaluation calorie count zofran prn, reglan if vomiting persists PO/IV hydration push PO, RN reports vomiting after intake 1:1 feeder fu labs Subjective Subjective limited Objective Last 24 Hour Vital Signs Date Time Temp Pulse Resp B/P (MAP) Pulse Ox O2 Delivery O2 Flow Rate FiO2 03/19/17 07:49 97.5 73 21 142/68 95 Room Air 03/19/17 04:00 98.2 68 19 105/71 95 Room Air 03/19/17 00:00 97.9 84 19 114/51 94 Room Air 03/18/17 20:00 98.4 81 19 142/96 97 Room Air 03/18/17 16:00 96.2 67 18 152/61 98 Room Air 03/18/17 12:00 98.2 99 18 144/73 96 Room Air Intake and Output 03/19/17 03/20/17 19:00 07:00 Output Total 50 ml Balance -50 ml Output Urine Total 50 ml Laboratory Tests Test 03/19/17 06:15 White Blood Count 6.7 K/UL (4.8-10.8) Red Blood Count 3.77 M/UL (4.70-6.10) L Hemoglobin 13.4 G/DL (14.2-18.0) L Hematocrit 37.5 % (42.0-52.0) L Mean Corpuscular Volume 100 FL (80-99) H Mean Corpuscular Hemoglobin 35.7 PG (27.0-31.0) H Mean Corpuscular Hemoglobin Concent 35.8 G/DL (32.0-36.0) Red Cell Distribution Width 11.9 % (11.6-14.8) Platelet Count 167 K/UL (150-450) Mean Platelet Volume 5.0 FL (6.5-10.1) L Neutrophils (%) (Auto) 64.5 % (45.0-75.0) Lymphocytes (%) (Auto) 27.5 % (20.0-45.0) Monocytes (%) (Auto) 6.6 % (1.0-10.0) Eosinophils (%) (Auto) 1.0 % (0.0-3.0) Basophils (%) (Auto) 0.4 % (0.0-2.0) Sodium Level 147 MMOL/L (136-145) H Potassium Level 3.3 MMOL/L (3.5-5.1) L Chloride Level 108 MMOL/L (98-107) H Carbon Dioxide Level 30 MMOL/L (21-32) Anion Gap 10 mmol/L (5-15) Blood Urea Nitrogen 24 mg/dL (7-18) H Creatinine 1.0 MG/DL (0.55-1.30) Estimat Glomerular Filtration Rate > 60 mL/min (>60) Glucose Level 76 MG/DL (74-106) Calcium Level 9.2 MG/DL (8.5-10.1) Height (Feet): 5 Height (Inches): 10.00 Weight (Pounds): 160 General Appearance: no apparent distress, alert Cardiovascular: normal rate Respiratory/Chest: normal breath sounds, no respiratory distress Abdominal Exam: normal bowel sounds, non tender, soft Extremities: non-tender Claudia Davalos N.PMurray Mar 19, 2017 11:23
[2017-03-19 11:24] VITALS: BP 143/66
--- NOTE | 2017-03-19 11:53 | General Progress Note ---
Assessment/Plan Problem List: (1) Dehydration ICD Codes: E86.0 - Dehydration SNOMED: 19306268 (2) Generalized weakness ICD Codes: R53.1 - Weakness SNOMED: 60084546 (3) Failure to thrive ICD Codes: HFT7087 - Reserved for [id number] codable problem concepts SNOMED: 91723145 Qualifiers: Qualified Codes: R62.7 - Adult failure to thrive (4) HIV (human immunodeficiency virus infection) ICD Codes: B20 - Human immunodeficiency virus [HIV] disease SNOMED: 13111489 (5) Gilbert disease ICD Codes: E80.4 - Gilbert syndrome SNOMED: 42793530 (6) UTI (urinary tract infection) ICD Codes: N39.0 - Urinary tract infection, site not specified SNOMED: 71440971 (7) Episode of generalized weakness ICD Codes: R53.1 - Weakness SNOMED: 40818787 (8) Altered mental status ICD Codes: R41.82 - Altered mental status, unspecified SNOMED: 566196401 (9) Hyperbilirubinemia ICD Codes: E80.6 - Other disorders of bilirubin metabolism SNOMED: 85092708 Status: stable, progressing Assessment/Plan ot pt diet gi f/u cbc bmp am Subjective Constitutional: Reports: weakness Allergies: Coded Allergies: No Known Allergies (Unverified , 06/10/15) All Systems: reviewed and negative except above Subjective in bed confused not eating well Objective Last 24 Hour Vital Signs Date Time Temp Pulse Resp B/P (MAP) Pulse Ox O2 Delivery O2 Flow Rate FiO2 03/19/17 11:24 97.6 100 21 143/66 95 Room Air 03/19/17 07:49 97.5 73 21 142/68 95 Room Air 03/19/17 04:00 98.2 68 19 105/71 95 Room Air 03/19/17 00:00 97.9 84 19 114/51 94 Room Air 03/18/17 20:00 98.4 81 19 142/96 97 Room Air 03/18/17 16:00 96.2 67 18 152/61 98 Room Air 03/18/17 12:00 98.2 99 18 144/73 96 Room Air Intake and Output 03/19/17 03/20/17 19:00 07:00 Output Total 50 ml Balance -50 ml Output Urine Total 50 ml Laboratory Tests 03/19/17 06:15: White Blood Count 6.7, Red Blood Count 3.77L, Hemoglobin 13.4L, Hematocrit 37.5L , Mean Corpuscular Volume 100H, Mean Corpuscular Hemoglobin 35.7H, Mean Corpuscular Hemoglobin Concent 35.8, Red Cell Distribution Width 11.9, Platelet Count 167, Mean Platelet Volume 5.0L, Neutrophils (%) (Auto) 64.5, Lymphocytes ( %) (Auto) 27.5, Monocytes (%) (Auto) 6.6, Eosinophils (%) (Auto) 1.0, Basophils (%) (Auto) 0.4, Sodium Level 147H, Potassium Level 3.3L, Chloride Level 108H, Carbon Dioxide Level 30, Anion Gap 10, Blood Urea Nitrogen 24H, Creatinine 1.0, Estimat Glomerular Filtration Rate > 60, Glucose Level 76, Calcium Level 9.2 Height (Feet): 5 Height (Inches): 10.00 Weight (Pounds): 160 General Appearance: lethargic EENT: normal ENT inspection Neck: normal alignment Cardiovascular: normal peripheral pulses, normal rate, regular rhythm Respiratory/Chest: chest wall non-tender, lungs clear, normal breath sounds Abdomen: normal bowel sounds, non tender, soft Extremities: normal inspection Edema: no edema noted Arm (L), no edema noted Arm (R), no edema noted Leg (L), no edema noted Leg (R), no edema noted Pedal (L), no edema noted Pedal (R), no edema noted Generalized Neurologic: motor weakness Skin: normal pigmentation, warm/dry YONATAN NATION Mar 19, 2017 11:53
[2017-03-19 13:19] LABS: CD3 ABSOLUTE 1680 /uL (622-2402); CD4 ABSOLUTE 336 /uL (359-1519); CD8 ABSOLUTE 1394 /uL (109-897); LYMPHS 24 % (Not Estab.); WBC 8.2 x10E3/uL (3.4-10.8)
--- NOTE | 2017-03-19 14:40 | Infectious Diseases Prog Note ---
Assessment/Plan Problems: (1) HIV (human immunodeficiency virus infection) Assessment & Plan: await viral load to assess his compliance with HIV meds and to rule out resistant to his current regimen , screening for syphilis is positive with titer 1;1 most likely due to previous exposure, resume Truvada and boosted darunavir . (2) Generalized weakness Assessment & Plan: recommend PT/OT EVAL (3) Failure to thrive Assessment & Plan: with positive screening for syphilis with titer 1:1 . Subjective ROS Limited/Unobtainable: Yes Allergies: Coded Allergies: No Known Allergies (Unverified , 06/10/15) Subjective he was lying in bed, alert, nonverbal, dosen't follow commands, NAD , with left hand bruises Objective Vital Signs Last 24 Hour Vital Signs Date Time Temp Pulse Resp B/P (MAP) Pulse Ox O2 Delivery O2 Flow Rate FiO2 03/19/17 11:24 97.6 100 21 143/66 95 Room Air 03/19/17 07:49 97.5 73 21 142/68 95 Room Air 03/19/17 04:00 98.2 68 19 105/71 95 Room Air 03/19/17 00:00 97.9 84 19 114/51 94 Room Air 03/18/17 20:00 98.4 81 19 142/96 97 Room Air 03/18/17 16:00 96.2 67 18 152/61 98 Room Air Height (Feet): 5 Height (Inches): 10.00 Weight (Pounds): 160 General Appearance: WD/WN, no acute distress HEENT: normocephalic, atraumatic, anicteric, mucous membranes moist, PERRL Respiratory/Chest: chest wall non-tender, lungs clear, normal breath sounds, no respiratory distress, no accessory muscle use Cardiovascular: normal peripheral pulses, normal rate, regular rhythm, no gallop/murmur, no JVD Abdomen: normal bowel sounds, soft, non tender, no organomegaly, non distended , no mass, no scars Extremities: no cyanosis, no clubbing Skin: no rash, no lesions Neurologic/Psychiatric: alert, oriented x 3 Lymphatic: no neck adenopathy, no groin adenopathy Laboratory Tests Test 03/19/17 06:15 White Blood Count 6.7 K/UL (4.8-10.8) Red Blood Count 3.77 M/UL (4.70-6.10) L Hemoglobin 13.4 G/DL (14.2-18.0) L Hematocrit 37.5 % (42.0-52.0) L Mean Corpuscular Volume 100 FL (80-99) H Mean Corpuscular Hemoglobin 35.7 PG (27.0-31.0) H Mean Corpuscular Hemoglobin Concent 35.8 G/DL (32.0-36.0) Red Cell Distribution Width 11.9 % (11.6-14.8) Platelet Count 167 K/UL (150-450) Mean Platelet Volume 5.0 FL (6.5-10.1) L Neutrophils (%) (Auto) 64.5 % (45.0-75.0) Lymphocytes (%) (Auto) 27.5 % (20.0-45.0) Monocytes (%) (Auto) 6.6 % (1.0-10.0) Eosinophils (%) (Auto) 1.0 % (0.0-3.0) Basophils (%) (Auto) 0.4 % (0.0-2.0) Sodium Level 147 MMOL/L (136-145) H Potassium Level 3.3 MMOL/L (3.5-5.1) L Chloride Level 108 MMOL/L (98-107) H Carbon Dioxide Level 30 MMOL/L (21-32) Anion Gap 10 mmol/L (5-15) Blood Urea Nitrogen 24 mg/dL (7-18) H Creatinine 1.0 MG/DL (0.55-1.30) Estimat Glomerular Filtration Rate > 60 mL/min (>60) Glucose Level 76 MG/DL (74-106) Calcium Level 9.2 MG/DL (8.5-10.1) Current Medications Medications (Trade) Dose Ordered Sig/Kaylin Route PRN Reason Start Time Stop Time Status Last Admin Dose Admin Acetaminophen (Tylenol) 650 mg Q4H PRN ORAL temp >100.5 F 03/17/17 16:45 04/16/17 16:44 Al Hydroxide/Mg Hydroxide (Mylanta II) 30 ml Q6H PRN ORAL dyspepsia 03/17/17 16:45 04/16/17 16:44 Darunavir (Prezista) 800 mg DAILY ORAL 03/18/17 09:00 04/17/17 08:59 03/19/17 08:46 Dextrose (Dextrose 50%) STAT PRN IV Hypoglycemia 03/17/17 16:45 04/16/17 16:44 Emtricitabine/ Tenofovir (Truvada 200/ 300mg) 1 tab DAILY ORAL 03/18/17 13:00 04/17/17 12:59 03/19/17 08:46 Heparin Sodium (Porcine) (Heparin 5000 units/ml) 5,000 units EVERY 12 HOURS SUBQ 03/17/17 21:00 04/16/17 20:59 03/19/17 08:46 Lorazepam (Ativan 2mg/ml 1ml) 0.5 mg Q4H PRN IV For Anxiety 03/17/17 16:45 03/24/17 16:44 Ondansetron HCl (Zofran) 4 mg Q6H PRN IVP Nausea & Vomiting 03/17/17 16:45 04/16/17 16:44 Polyethylene Glycol (Miralax) 17 gm HSPRN PRN ORAL Constipation 03/17/17 16:45 04/16/17 16:44 Ritonavir (Norvir) 100 mg DAILY ORAL 03/18/17 13:00 04/17/17 12:59 03/19/17 08:46 Trazodone HCl (Desyrel) 25 mg BEDTIME ORAL 03/17/17 21:00 04/16/17 20:59 03/18/17 21:19 Zolpidem Tartrate (Ambien) 5 mg HSPRN PRN ORAL Insomnia 03/17/17 16:45 03/24/17 16:44 Caroline Gold M.D. Mar 19, 2017 14:40
[2017-03-19 15:36] VITALS: BP 145/74
--- NOTE | 2017-03-19 17:07 | Pulmonology Progress Note ---
Assessment/Plan Problems: (1) Failure to thrive (2) Generalized weakness (3) Dehydration (4) Episode of generalized weakness (5) UTI (urinary tract infection) (6) HIV (human immunodeficiency virus infection) Assessment/Plan swallow study calorie count check electrolytes check cultures pt/ot GI recommendations reviewed. Subjective ROS Limited/Unobtainable: No Constitutional: Reports: no symptoms HEENT: Repors: no symptoms Respiratory: Reports: no symptoms Allergies: Coded Allergies: No Known Allergies (Unverified , 06/10/15) Objective Last 24 Hour Vital Signs Date Time Temp Pulse Resp B/P (MAP) Pulse Ox O2 Delivery O2 Flow Rate FiO2 03/19/17 15:36 97.5 90 21 145/74 95 Room Air 03/19/17 11:24 97.6 100 21 143/66 95 Room Air 03/19/17 07:49 97.5 73 21 142/68 95 Room Air 03/19/17 04:00 98.2 68 19 105/71 95 Room Air 03/19/17 00:00 97.9 84 19 114/51 94 Room Air 03/18/17 20:00 98.4 81 19 142/96 97 Room Air Intake and Output 03/19/17 03/20/17 19:00 07:00 Output Total 50 ml Balance -50 ml Output Urine Total 50 ml General Appearance: WD/WN HEENT: normocephalic Respiratory/Chest: chest wall non-tender, lungs clear, normal breath sounds Cardiovascular: normal peripheral pulses, normal rate Abdomen: normal bowel sounds, soft, non tender Genitourinary: normal external genitalia Skin: no rash Neurologic/Psychiatric: feed management advisor II-XII grossly normal Laboratory Tests 03/19/17 06:15: White Blood Count 6.7, Red Blood Count 3.77L, Hemoglobin 13.4L, Hematocrit 37.5L , Mean Corpuscular Volume 100H, Mean Corpuscular Hemoglobin 35.7H, Mean Corpuscular Hemoglobin Concent 35.8, Red Cell Distribution Width 11.9, Platelet Count 167, Mean Platelet Volume 5.0L, Neutrophils (%) (Auto) 64.5, Lymphocytes ( %) (Auto) 27.5, Monocytes (%) (Auto) 6.6, Eosinophils (%) (Auto) 1.0, Basophils (%) (Auto) 0.4, Sodium Level 147H, Potassium Level 3.3L, Chloride Level 108H, Carbon Dioxide Level 30, Anion Gap 10, Blood Urea Nitrogen 24H, Creatinine 1.0, Estimat Glomerular Filtration Rate > 60, Glucose Level 76, Calcium Level 9.2 Current Medications Medications (Trade) Dose Ordered Sig/Kaylin Route PRN Reason Start Time Stop Time Status Last Admin Dose Admin Acetaminophen (Tylenol) 650 mg Q4H PRN ORAL temp >100.5 F 03/17/17 16:45 04/16/17 16:44 Al Hydroxide/Mg Hydroxide (Mylanta II) 30 ml Q6H PRN ORAL dyspepsia 03/17/17 16:45 04/16/17 16:44 Darunavir (Prezista) 800 mg DAILY ORAL 03/18/17 09:00 04/17/17 08:59 03/19/17 08:46 Dextrose (Dextrose 50%) STAT PRN IV Hypoglycemia 03/17/17 16:45 04/16/17 16:44 Emtricitabine/ Tenofovir (Truvada 200/ 300mg) 1 tab DAILY ORAL 03/18/17 13:00 04/17/17 12:59 03/19/17 08:46 Heparin Sodium (Porcine) (Heparin 5000 units/ml) 5,000 units EVERY 12 HOURS SUBQ 03/17/17 21:00 04/16/17 20:59 03/19/17 08:46 Lorazepam (Ativan 2mg/ml 1ml) 0.5 mg Q4H PRN IV For Anxiety 03/17/17 16:45 03/24/17 16:44 Ondansetron HCl (Zofran) 4 mg Q6H PRN IVP Nausea & Vomiting 03/17/17 16:45 04/16/17 16:44 Polyethylene Glycol (Miralax) 17 gm HSPRN PRN ORAL Constipation 03/17/17 16:45 04/16/17 16:44 Ritonavir (Norvir) 100 mg DAILY ORAL 03/18/17 13:00 04/17/17 12:59 03/19/17 08:46 Trazodone HCl (Desyrel) 25 mg BEDTIME ORAL 03/17/17 21:00 04/16/17 20:59 03/18/17 21:19 Zolpidem Tartrate (Ambien) 5 mg HSPRN PRN ORAL Insomnia 03/17/17 16:45 03/24/17 16:44 [place] COLON Mar 19, 2017 17:07
[2017-03-19] MEDS ORDERED: Haloperidol 5mg/ml Inj IM PRN (18:30)
[2017-03-19] MEDS ORDERED: LORazepam Inj 2mg/ml 1ml IM PRN (18:30)
[2017-03-19 20:00] VITALS: BP 124/82
[2017-03-19] MEDS: TraZODone HCl 25 mg tablet ORAL SCH (21:10)
--- NOTE | 2017-03-19 22:15 | Consultation ---
History of Present Illness General Date patient seen: Mar 18, 2017 Chief Complaint: Generalized Weakness Referring physician: [place] REGALADO Reason for Consultation: VOMITING Present Illness HPI 66-year-old male from [facility], presented with increased confusion, lethargy, weakness, not eating well. the pt was agitated and was twitching and sticking his tongue outpoor historian and was unable to provide hx Allergies: Coded Allergies: No Known Allergies (Unverified , 06/10/15) Medication History Scheduled Atazanavir Sulfate (Reyataz), 300 MG ORAL DAILY, (Reported) Cholecalciferol (Vitamin D3)* (Vitamin D*), 1,000 UNIT ORAL DAILY, (Reported) Emtricitabine/Tenofovir 200-300MG* (Truvada 200-300MG*), 1 TAB ORAL DAILY, ( Reported) Levofloxacin* (Levaquin*), 500 MG ORAL DAILY Lisinopril (Lisinopril), 20 MG ORAL DAILY, (Reported) Quetiapine Fumarate (Seroquel), 150 MG ORAL HS, (Reported) Ritonavir* (Norvir*), 100 MG ORAL DAILY, (Reported) Trazodone* (Trazodone*), 25 MG ORAL BEDTIME, (Reported) Vitamin B Cmplx/Vit C/Folic AC (Nephro-Bianca Tablet), 1 TAB ORAL DAILY, (Reported ) Scheduled PRN Acetaminophen (Acetaminophen), 650 MG ORAL Q6H PRN for Prn Headache/Temp > 101, (Reported) Magnesium Hydroxide (Milk of Magnesia), 30 ML ORAL Q6HR PRN for Constipation, ( Reported) Miscellaneous Medications Al Hydroxide/mg Hydroxide (Mag-Al Liquid), 30 ML GT, (Reported) Aspirin (Aspirin), 81 MG PO, (Reported) Patient History History Provided By: Patient, Medical Record, PMD Healthcare decision maker N Resuscitation status Full Code Advanced Directive on File Review of Systems Psychiatric: Reports: prior hx, anxiety, depressed feelings, emotional problems Physical Exam General Appearance: alert, confused, moderate distress, agitated Neurologic: alert, disoriented, depressed affect Last 24 Hour Vital Signs Date Time Temp Pulse Resp B/P (MAP) Pulse Ox O2 Delivery O2 Flow Rate FiO2 03/19/17 20:00 97.9 67 20 124/82 97 Room Air 03/19/17 15:36 97.5 90 21 145/74 95 Room Air 03/19/17 11:24 97.6 100 21 143/66 95 Room Air 03/19/17 07:49 97.5 73 21 142/68 95 Room Air 03/19/17 04:00 98.2 68 19 105/71 95 Room Air 03/19/17 00:00 97.9 84 19 114/51 94 Room Air Intake and Output 03/19/17 03/20/17 19:00 07:00 Intake Total 360 ml Output Total 450 ml Balance -90 ml Intake Oral 360 ml Output Urine Total 450 ml Laboratory Tests Test 03/19/17 06:15 White Blood Count 6.7 K/UL (4.8-10.8) Red Blood Count 3.77 M/UL (4.70-6.10) L Hemoglobin 13.4 G/DL (14.2-18.0) L Hematocrit 37.5 % (42.0-52.0) L Mean Corpuscular Volume 100 FL (80-99) H Mean Corpuscular Hemoglobin 35.7 PG (27.0-31.0) H Mean Corpuscular Hemoglobin Concent 35.8 G/DL (32.0-36.0) Red Cell Distribution Width 11.9 % (11.6-14.8) Platelet Count 167 K/UL (150-450) Mean Platelet Volume 5.0 FL (6.5-10.1) L Neutrophils (%) (Auto) 64.5 % (45.0-75.0) Lymphocytes (%) (Auto) 27.5 % (20.0-45.0) Monocytes (%) (Auto) 6.6 % (1.0-10.0) Eosinophils (%) (Auto) 1.0 % (0.0-3.0) Basophils (%) (Auto) 0.4 % (0.0-2.0) Sodium Level 147 MMOL/L (136-145) H Potassium Level 3.3 MMOL/L (3.5-5.1) L Chloride Level 108 MMOL/L (98-107) H Carbon Dioxide Level 30 MMOL/L (21-32) Anion Gap 10 mmol/L (5-15) Blood Urea Nitrogen 24 mg/dL (7-18) H Creatinine 1.0 MG/DL (0.55-1.30) Estimat Glomerular Filtration Rate > 60 mL/min (>60) Glucose Level 76 MG/DL (74-106) Calcium Level 9.2 MG/DL (8.5-10.1) Height (Feet): 5 Height (Inches): 10.00 Weight (Pounds): 160 Medications Current Medications Medications (Trade) Dose Ordered Sig/Kaylin Route PRN Reason Start Time Stop Time Status Last Admin Dose Admin Acetaminophen (Tylenol) 650 mg Q4H PRN ORAL temp >100.5 F 03/17/17 16:45 04/16/17 16:44 Al Hydroxide/Mg Hydroxide (Mylanta II) 30 ml Q6H PRN ORAL dyspepsia 03/17/17 16:45 04/16/17 16:44 Darunavir (Prezista) 800 mg DAILY ORAL 03/18/17 09:00 04/17/17 08:59 03/19/17 08:46 Dextrose (Dextrose 50%) STAT PRN IV Hypoglycemia 03/17/17 16:45 04/16/17 16:44 Dextrose/Sodium Chloride 1,000 ml @ 80 mls/hr [id number] IV 03/19/17 18:00 04/18/17 17:59 Emtricitabine/ Tenofovir (Truvada 200/ 300mg) 1 tab DAILY ORAL 03/18/17 13:00 04/17/17 12:59 03/19/17 08:46 Haloperidol Lactate (Haldol) 5 mg Q6H PRN IM Agitation 03/19/17 18:30 04/18/17 18:29 Heparin Sodium (Porcine) (Heparin 5000 units/ml) 5,000 units EVERY 12 HOURS SUBQ 03/17/17 21:00 04/16/17 20:59 03/19/17 21:11 Lorazepam (Ativan 2mg/ml 1ml) 0.5 mg Q4H PRN IV For Anxiety 03/17/17 16:45 03/24/17 16:44 Lorazepam (Ativan 2mg/ml 1ml) 1 mg Q4H PRN IM Agitation Unrelieved by Haldol 03/19/17 18:30 03/26/17 18:29 Ondansetron HCl (Zofran) 4 mg Q6H PRN IVP Nausea & Vomiting 03/17/17 16:45 04/16/17 16:44 Polyethylene Glycol (Miralax) 17 gm HSPRN PRN ORAL Constipation 03/17/17 16:45 04/16/17 16:44 Ritonavir (Norvir) 100 mg DAILY ORAL 03/18/17 13:00 04/17/17 12:59 03/19/17 08:46 Trazodone HCl (Desyrel) 25 mg BEDTIME ORAL 03/17/17 21:00 04/16/17 20:59 03/19/17 21:10 Zolpidem Tartrate (Ambien) 5 mg HSPRN PRN ORAL Insomnia 03/17/17 16:45 03/24/17 16:44 Assessment/Plan Status: stable Assessment/Plan failure to thrive agitation zyprexa 10mg po qhs Delta Warren M.D. Mar 19, 2017 22:15
[2017-03-20] VITALS (7 sets, daily range): BP systolic 120–170; BP diastolic 66–113
[2017-03-20] MEDS: D5NS 1,000 ML IV SCH ×4 (01:19→19:00)
[2017-03-20 06:51] LABS: BASOPHILS % (AUTO) 0.7 % (0.0-2.0); EOSINOPHILS % (AUTO) 1.2 % (0.0-3.0); LYMPHOCYTES % (AUTO) 35.9 % (20.0-45.0); MEAN CORPUSCULAR HEMOGLOBIN 33.7 PG (27.0-31.0); MEAN CORPUSCULAR HGB CONC 33.7 G/DL (32.0-36.0); MEAN CORPUSCULAR VOLUME 100 FL (80-99); NEUTROPHILS % (AUTO) 55.2 % (45.0-75.0); PLATELET COUNT 152 K/UL (150-450); RED BLOOD COUNT 3.73 M/UL (4.70-6.10); RED CELL DISTRIBUTION WIDTH 11.5 % (11.6-14.8); WHITE BLOOD COUNT 6.5 K/UL (4.8-10.8)
[2017-03-20 07:04] LABS: ANION GAP 10 mmol/L (5-15); CALCIUM 8.7 MG/DL (8.5-10.1); CARBON DIOXIDE 28 MMOL/L (21-32); CHLORIDE 106 MMOL/L (98-107); CREATININE 0.8 MG/DL (0.55-1.30); GLOMERULAR FILTRATION RATE > 60 mL/min (>60); POTASSIUM 3.1 MMOL/L (3.5-5.1); SODIUM 144 MMOL/L (136-145)
--- NOTE | 2017-03-20 07:30 | Consultation ---
DATE OF CONSULTATION: 03/18/2017 PSYCHOTHERAPY CONSULTATION PROGRESS NOTE CONSULTING PHYSICIAN: Dulce Resendiz PsyD TREATING ATTENDING PHYSICIAN: Maikel Mckenzie D.O. HISTORY OF PRESENT ILLNESS: The patient is a 66-year-old male patient from [facility]. The patient was admitted to the hospital with weakness and dehydration. The patient has failure to thrive, has encephalopathy. The patient has a history of mental illness as well including paranoid schizophrenia. The patient has been simply lethargic, confused, and has been refusing to eat. For this reason, the patient was referred for psychotherapeutic services. This clinician assessed this patient. The patient is very confused, weak, helpless, poorly motivated. problems, alert. The patient has a poor insight into his his mental illness. At this time, there is no indication of auditory or visual hallucinations. There is no indication of suicidal or homicidal thoughts of ideation. The patient remains very weak. PAST MEDICAL HISTORY: History of HIV, history of COPD, and hypertension. ALLERGIES: No known drug allergies. SUBSTANCE ABUSE HISTORY: There is no indication of alcohol use, illicit substance use, or smoking cigarettes. PSYCHIATRIC HISTORY: The patient has a history of paranoid schizophrenia. The patient has been treated with psychotropic medications in the past. SOCIAL HISTORY: The patient is a 66-year-old male patient from [facility]. Financially sustained through [facility] [employer]. MENTAL STATUS EXAMINATION: The patient is alert and oriented to person. Mood is dysphoric. Affect is blunted. Thought process is disorganized. Thought content, confused. The patient has poor attention and concentration. Poor insight, judgment, and impulse control. This clinician assessed the patient. DIAGNOSIS: Paranoid schizophrenia. This clinician provided the patient with reality orientation and supportive psychotherapy. Encouraging the patient to participate in treatment milieu, reality orientation, and coping skills. This clinician assessed the patient, assessed the patient's mental status, provided the patient with reality orientation. Continue with medication management and behavioral management. This clinician has reviewed the patient's chart and discussed with the treatment team. Dulce Resendiz PsyD. : ELDER JOB#: [id number] CC:
[2017-03-20] MEDS: Ritonavir 100mg tab ORAL SCH (09:25)
[2017-03-20] MEDS: Heparin 5000 units/ml inj SUBQ SCH ×2 (09:33→21:37)
--- NOTE | 2017-03-20 11:06 | GI Progress Note ---
Assessment/Plan Problems: (1) Altered mental status ICD Codes: R41.82 - Altered mental status, unspecified SNOMED: 806772587 (2) Episode of generalized weakness ICD Codes: R53.1 - Weakness SNOMED: 17476384 (3) Gilbert disease ICD Codes: E80.4 - Gilbert syndrome SNOMED: 88014218 (4) Dehydration ICD Codes: E86.0 - Dehydration SNOMED: 51326260 (5) Generalized weakness ICD Codes: R53.1 - Weakness SNOMED: 47218065 (6) Hyperbilirubinemia ICD Codes: E80.6 - Other disorders of bilirubin metabolism SNOMED: 19529661 (7) Smoking greater than 20 pack years ICD Codes: F17.210 - Nicotine dependence, cigarettes, uncomplicated SNOMED: 80625979 Status: stable Status Narrative Discussed with Dr. Harman. Assessment/Plan ST eval noted defer PEG, okay for DC per GI standpoint supportive care/symptomatic treatment calorie count diet per ST zofran prn, reglan if vomiting persists push PO 1:1 feeder fu labs Subjective Subjective limited Objective Last 24 Hour Vital Signs Date Time Temp Pulse Resp B/P (MAP) Pulse Ox O2 Delivery O2 Flow Rate FiO2 03/20/17 08:00 97.9 60 20 120/66 100 Room Air 03/20/17 04:00 98.8 60 18 155/76 96 Room Air 03/20/17 00:00 98.2 56 19 151/90 96 Room Air 03/19/17 20:00 97.9 67 20 124/82 97 Room Air 03/19/17 15:36 97.5 90 21 145/74 95 Room Air 03/19/17 11:24 97.6 100 21 143/66 95 Room Air Intake and Output 03/20/17 03/21/17 19:00 07:00 Intake Total 240 ml Balance 240 ml IV Total 240 ml Laboratory Tests Test 03/20/17 06:15 White Blood Count 6.5 K/UL (4.8-10.8) Red Blood Count 3.73 M/UL (4.70-6.10) L Hemoglobin 12.6 G/DL (14.2-18.0) L Hematocrit 37.3 % (42.0-52.0) L Mean Corpuscular Volume 100 FL (80-99) H Mean Corpuscular Hemoglobin 33.7 PG (27.0-31.0) H Mean Corpuscular Hemoglobin Concent 33.7 G/DL (32.0-36.0) Red Cell Distribution Width 11.5 % (11.6-14.8) L Platelet Count 152 K/UL (150-450) Mean Platelet Volume 5.0 FL (6.5-10.1) L Neutrophils (%) (Auto) 55.2 % (45.0-75.0) Lymphocytes (%) (Auto) 35.9 % (20.0-45.0) Monocytes (%) (Auto) 7.0 % (1.0-10.0) Eosinophils (%) (Auto) 1.2 % (0.0-3.0) Basophils (%) (Auto) 0.7 % (0.0-2.0) Sodium Level 144 MMOL/L (136-145) Potassium Level 3.1 MMOL/L (3.5-5.1) L Chloride Level 106 MMOL/L (98-107) Carbon Dioxide Level 28 MMOL/L (21-32) Anion Gap 10 mmol/L (5-15) Blood Urea Nitrogen 19 mg/dL (7-18) H Creatinine 0.8 MG/DL (0.55-1.30) Estimat Glomerular Filtration Rate > 60 mL/min (>60) Glucose Level 89 MG/DL (74-106) Calcium Level 8.7 MG/DL (8.5-10.1) Height (Feet): 5 Height (Inches): 10.00 Weight (Pounds): 160 General Appearance: WD/WN, no apparent distress, alert Cardiovascular: normal rate Respiratory/Chest: normal breath sounds, no respiratory distress Abdominal Exam: normal bowel sounds, non tender, soft Extremities: non-tender Claudia Davalos N.Ann Mar 20, 2017 11:06
[2017-03-20] MEDS ORDERED: KCl 10% 20 mEq/15ml liquid NG ONE (12:30)
[2017-03-20] MEDS ORDERED: D5NS 1000ml IV ONE (14:08)
--- NOTE | 2017-03-20 14:57 | Infectious Diseases Prog Note ---
Assessment/Plan Problems: (1) HIV (human immunodeficiency virus infection) Assessment & Plan: await viral load to assess his compliance with HIV meds and to rule out resistant to his current regimen , screening for syphilis is positive with titer 1;1 most likely due to previous exposure, and not an active infection , continue Truvada and boosted darunavir , follow up with HIV provider as an out patient . (2) Generalized weakness Assessment & Plan: recommend PT/OT EVAL (3) Failure to thrive Assessment & Plan: with positive screening for syphilis with titer 1:1 most likely due to previous infection and not active one . Subjective ROS Limited/Unobtainable: Yes Allergies: Coded Allergies: No Known Allergies (Unverified , 06/10/15) Subjective he was lying in bed, quiet , nonverbal, dosen't follow commands, NAD Objective Vital Signs Last 24 Hour Vital Signs Date Time Temp Pulse Resp B/P (MAP) Pulse Ox O2 Delivery O2 Flow Rate FiO2 03/20/17 12:00 97.3 72 20 155/75 98 Room Air 03/20/17 08:00 97.9 60 20 120/66 100 Room Air 03/20/17 04:00 98.8 60 18 155/76 96 Room Air 03/20/17 00:00 98.2 56 19 151/90 96 Room Air 03/19/17 20:00 97.9 67 20 124/82 97 Room Air 03/19/17 15:36 97.5 90 21 145/74 95 Room Air Height (Feet): 5 Height (Inches): 10.00 Weight (Pounds): 160 General Appearance: WD/WN, no acute distress HEENT: normocephalic, atraumatic, anicteric, mucous membranes moist Respiratory/Chest: chest wall non-tender, lungs clear, normal breath sounds, no respiratory distress, no accessory muscle use Cardiovascular: normal peripheral pulses, normal rate, regular rhythm, no gallop/murmur, no JVD Abdomen: normal bowel sounds, soft, non tender, no organomegaly, non distended , no mass, no scars Extremities: no cyanosis, no clubbing Skin: no rash, no lesions, no ulcers Neurologic/Psychiatric: alert, oriented x 3 Lymphatic: no neck adenopathy Microbiology Date/Time Source Procedure Growth Status 03/17/17 18:35 Nasal Nares MRSA Culture - Final NO METHICILLIN RESISTANT STAPH AUREUS... Complete 03/17/17 18:35 Rectum VRE Culture - Final Enterococcus Faecium - Vre Complete Laboratory Tests Test 03/20/17 06:15 White Blood Count 6.5 K/UL (4.8-10.8) Red Blood Count 3.73 M/UL (4.70-6.10) L Hemoglobin 12.6 G/DL (14.2-18.0) L Hematocrit 37.3 % (42.0-52.0) L Mean Corpuscular Volume 100 FL (80-99) H Mean Corpuscular Hemoglobin 33.7 PG (27.0-31.0) H Mean Corpuscular Hemoglobin Concent 33.7 G/DL (32.0-36.0) Red Cell Distribution Width 11.5 % (11.6-14.8) L Platelet Count 152 K/UL (150-450) Mean Platelet Volume 5.0 FL (6.5-10.1) L Neutrophils (%) (Auto) 55.2 % (45.0-75.0) Lymphocytes (%) (Auto) 35.9 % (20.0-45.0) Monocytes (%) (Auto) 7.0 % (1.0-10.0) Eosinophils (%) (Auto) 1.2 % (0.0-3.0) Basophils (%) (Auto) 0.7 % (0.0-2.0) Sodium Level 144 MMOL/L (136-145) Potassium Level 3.1 MMOL/L (3.5-5.1) L Chloride Level 106 MMOL/L (98-107) Carbon Dioxide Level 28 MMOL/L (21-32) Anion Gap 10 mmol/L (5-15) Blood Urea Nitrogen 19 mg/dL (7-18) H Creatinine 0.8 MG/DL (0.55-1.30) Estimat Glomerular Filtration Rate > 60 mL/min (>60) Glucose Level 89 MG/DL (74-106) Calcium Level 8.7 MG/DL (8.5-10.1) Current Medications Medications (Trade) Dose Ordered Sig/Kaylin Route PRN Reason Start Time Stop Time Status Last Admin Dose Admin Acetaminophen (Tylenol) 650 mg Q4H PRN ORAL temp >100.5 F 03/17/17 16:45 04/16/17 16:44 Al Hydroxide/Mg Hydroxide (Mylanta II) 30 ml Q6H PRN ORAL dyspepsia 03/17/17 16:45 04/16/17 16:44 Darunavir (Prezista) 800 mg DAILY ORAL 03/18/17 09:00 04/17/17 08:59 03/20/17 09:25 Dextrose (Dextrose 50%) STAT PRN IV Hypoglycemia 03/17/17 16:45 04/16/17 16:44 Dextrose/Sodium Chloride 1,000 ml @ 80 mls/hr [id number] IV 03/19/17 18:00 04/18/17 17:59 03/20/17 06:19 Emtricitabine/ Tenofovir (Truvada 200/ 300mg) 1 tab DAILY ORAL 03/18/17 13:00 04/17/17 12:59 03/20/17 09:25 Haloperidol Lactate (Haldol) 5 mg Q6H PRN IM Agitation 03/19/17 18:30 04/18/17 18:29 03/19/17 22:57 Heparin Sodium (Porcine) (Heparin 5000 units/ml) 5,000 units EVERY 12 HOURS SUBQ 03/17/17 21:00 04/16/17 20:59 03/20/17 09:33 Lorazepam (Ativan 2mg/ml 1ml) 0.5 mg Q4H PRN IV For Anxiety 03/17/17 16:45 03/24/17 16:44 Lorazepam (Ativan 2mg/ml 1ml) 1 mg Q4H PRN IM Agitation Unrelieved by Haldol 03/19/17 18:30 03/26/17 18:29 Olanzapine (ZyPREXA) 10 mg BEDTIME ORAL 03/20/17 21:00 04/19/17 20:59 Ondansetron HCl (Zofran) 4 mg Q6H PRN IVP Nausea & Vomiting 03/17/17 16:45 04/16/17 16:44 Polyethylene Glycol (Miralax) 17 gm HSPRN PRN ORAL Constipation 03/17/17 16:45 04/16/17 16:44 Ritonavir (Norvir) 100 mg DAILY ORAL 03/18/17 13:00 04/17/17 12:59 03/20/17 09:25 Zolpidem Tartrate (Ambien) 5 mg HSPRN PRN ORAL Insomnia 03/17/17 16:45 03/24/17 16:44 Caroline Gold M.D. Mar 20, 2017 14:57
--- NOTE | 2017-03-20 15:20 | General Progress Note ---
Assessment/Plan Problem List: (1) Dehydration ICD Codes: E86.0 - Dehydration SNOMED: 34898069 (2) Generalized weakness ICD Codes: R53.1 - Weakness SNOMED: 19957111 (3) Failure to thrive ICD Codes: LTQ2243 - Reserved for [id number] codable problem concepts SNOMED: 17857608 Qualifiers: Qualified Codes: R62.7 - Adult failure to thrive (4) HIV (human immunodeficiency virus infection) ICD Codes: B20 - Human immunodeficiency virus [HIV] disease SNOMED: 69085849 (5) Gilbert disease ICD Codes: E80.4 - Gilbert syndrome SNOMED: 39417340 (6) UTI (urinary tract infection) ICD Codes: N39.0 - Urinary tract infection, site not specified SNOMED: 73148808 (7) Episode of generalized weakness ICD Codes: R53.1 - Weakness SNOMED: 00465333 (8) Altered mental status ICD Codes: R41.82 - Altered mental status, unspecified SNOMED: 444425264 (9) Hyperbilirubinemia ICD Codes: E80.6 - Other disorders of bilirubin metabolism SNOMED: 76791055 Status: stable, progressing, tolerating diet Assessment/Plan ot pt diet gi f/u cbc bmp am dc plan if clear by gi Subjective Constitutional: Reports: weakness Allergies: Coded Allergies: No Known Allergies (Unverified , 06/10/15) All Systems: reviewed and negative except above Subjective in bed confused Objective Last 24 Hour Vital Signs Date Time Temp Pulse Resp B/P (MAP) Pulse Ox O2 Delivery O2 Flow Rate FiO2 03/20/17 12:00 97.3 72 20 155/75 98 Room Air 03/20/17 08:00 97.9 60 20 120/66 100 Room Air 03/20/17 04:00 98.8 60 18 155/76 96 Room Air 03/20/17 00:00 98.2 56 19 151/90 96 Room Air 03/19/17 20:00 97.9 67 20 124/82 97 Room Air 03/19/17 15:36 97.5 90 21 145/74 95 Room Air Intake and Output 03/20/17 03/21/17 19:00 07:00 Intake Total 400 ml Balance 400 ml IV Total 400 ml Laboratory Tests 03/20/17 06:15: White Blood Count 6.5, Red Blood Count 3.73L, Hemoglobin 12.6L, Hematocrit 37.3L , Mean Corpuscular Volume 100H, Mean Corpuscular Hemoglobin 33.7H, Mean Corpuscular Hemoglobin Concent 33.7, Red Cell Distribution Width 11.5L, Platelet Count 152, Mean Platelet Volume 5.0L, Neutrophils (%) (Auto) 55.2, Lymphocytes (%) (Auto) 35.9, Monocytes (%) (Auto) 7.0, Eosinophils (%) (Auto) 1.2, Basophils (%) (Auto) 0.7, Sodium Level 144, Potassium Level 3.1L, Chloride Level 106, Carbon Dioxide Level 28, Anion Gap 10, Blood Urea Nitrogen 19H, Creatinine 0.8, Estimat Glomerular Filtration Rate > 60, Glucose Level 89, Calcium Level 8.7 Height (Feet): 5 Height (Inches): 10.00 Weight (Pounds): 160 General Appearance: lethargic EENT: normal ENT inspection Neck: normal alignment Cardiovascular: normal peripheral pulses, normal rate, regular rhythm Respiratory/Chest: chest wall non-tender, lungs clear, normal breath sounds Abdomen: normal bowel sounds, non tender, soft Extremities: normal inspection Edema: no edema noted Arm (L), no edema noted Arm (R), no edema noted Leg (L), no edema noted Leg (R), no edema noted Pedal (L), no edema noted Pedal (R), no edema noted Generalized Neurologic: motor weakness Skin: normal pigmentation, warm/dry YONATAN NATION Mar 20, 2017 15:20
--- NOTE | 2017-03-20 18:38 | Pulmonology Progress Note ---
Assessment/Plan Problems: (1) Failure to thrive (2) Generalized weakness (3) Dehydration (4) Episode of generalized weakness (5) UTI (urinary tract infection) (6) HIV (human immunodeficiency virus infection) Assessment/Plan swallow study calorie count check electrolytes check cultures pt/ot GI recommendations reviewed. Subjective ROS Limited/Unobtainable: No Constitutional: Reports: no symptoms HEENT: Repors: no symptoms Respiratory: Reports: no symptoms Allergies: Coded Allergies: No Known Allergies (Unverified , 06/10/15) Objective Last 24 Hour Vital Signs Date Time Temp Pulse Resp B/P (MAP) Pulse Ox O2 Delivery O2 Flow Rate FiO2 03/20/17 16:20 97.7 72 20 159/113 98 Room Air 03/20/17 12:00 97.3 72 20 155/75 98 Room Air 03/20/17 08:00 97.9 60 20 120/66 100 Room Air 03/20/17 04:00 98.8 60 18 155/76 96 Room Air 03/20/17 00:00 98.2 56 19 151/90 96 Room Air 03/19/17 20:00 97.9 67 20 124/82 97 Room Air Intake and Output 03/20/17 03/21/17 19:00 07:00 Intake Total 1120 ml Balance 1120 ml Intake Oral 240 ml IV Total 880 ml # Voids 2 Objective General Appearance: WD/WN, no apparent distress Lines, tubes and drains: peripheral, PICC HEENT: normocephalic, anicteric Neck: non-tender, normal alignment Respiratory/Chest: chest wall non-tender, lungs clear Cardiovascular/Chest: normal rate, regular rhythm Abdomen: non tender, soft Genitourinary/Rectal: normal genital exam, normal rectal exam Extremities: normal range of motion, non-pitting Laboratory Tests 03/20/17 06:15: White Blood Count 6.5, Red Blood Count 3.73L, Hemoglobin 12.6L, Hematocrit 37.3L , Mean Corpuscular Volume 100H, Mean Corpuscular Hemoglobin 33.7H, Mean Corpuscular Hemoglobin Concent 33.7, Red Cell Distribution Width 11.5L, Platelet Count 152, Mean Platelet Volume 5.0L, Neutrophils (%) (Auto) 55.2, Lymphocytes (%) (Auto) 35.9, Monocytes (%) (Auto) 7.0, Eosinophils (%) (Auto) 1.2, Basophils (%) (Auto) 0.7, Sodium Level 144, Potassium Level 3.1L, Chloride Level 106, Carbon Dioxide Level 28, Anion Gap 10, Blood Urea Nitrogen 19H, Creatinine 0.8, Estimat Glomerular Filtration Rate > 60, Glucose Level 89, Calcium Level 8.7 Current Medications Medications (Trade) Dose Ordered Sig/Kaylin Route PRN Reason Start Time Stop Time Status Last Admin Dose Admin Acetaminophen (Tylenol) 650 mg Q4H PRN ORAL temp >100.5 F 03/17/17 16:45 04/16/17 16:44 Al Hydroxide/Mg Hydroxide (Mylanta II) 30 ml Q6H PRN ORAL dyspepsia 03/17/17 16:45 04/16/17 16:44 Darunavir (Prezista) 800 mg DAILY ORAL 03/18/17 09:00 04/17/17 08:59 03/20/17 09:25 Dextrose (Dextrose 50%) STAT PRN IV Hypoglycemia 03/17/17 16:45 04/16/17 16:44 Dextrose/Sodium Chloride 1,000 ml @ 80 mls/hr [id number] IV 03/19/17 18:00 04/18/17 17:59 03/20/17 18:08 Emtricitabine/ Tenofovir (Truvada 200/ 300mg) 1 tab DAILY ORAL 03/18/17 13:00 04/17/17 12:59 03/20/17 09:25 Haloperidol Lactate (Haldol) 5 mg Q6H PRN IM Agitation 03/19/17 18:30 04/18/17 18:29 03/19/17 22:57 Heparin Sodium (Porcine) (Heparin 5000 units/ml) 5,000 units EVERY 12 HOURS SUBQ 03/17/17 21:00 04/16/17 20:59 03/20/17 09:33 Lorazepam (Ativan 2mg/ml 1ml) 0.5 mg Q4H PRN IV For Anxiety 03/17/17 16:45 03/24/17 16:44 Lorazepam (Ativan 2mg/ml 1ml) 1 mg Q4H PRN IM Agitation Unrelieved by Haldol 03/19/17 18:30 03/26/17 18:29 Olanzapine (ZyPREXA) 10 mg BEDTIME ORAL 03/20/17 21:00 04/19/17 20:59 Ondansetron HCl (Zofran) 4 mg Q6H PRN IVP Nausea & Vomiting 03/17/17 16:45 04/16/17 16:44 Polyethylene Glycol (Miralax) 17 gm HSPRN PRN ORAL Constipation 03/17/17 16:45 04/16/17 16:44 Ritonavir (Norvir) 100 mg DAILY ORAL 03/18/17 13:00 04/17/17 12:59 03/20/17 09:25 Zolpidem Tartrate (Ambien) 5 mg HSPRN PRN ORAL Insomnia 03/17/17 16:45 03/24/17 16:44 [place] COL[place] Mar 20, 2017 18:38
--- NOTE | 2017-03-20 20:36 | General Progress Note ---
Assessment/Plan Status: stable Assessment/Plan encephalopathy haldol IM Subjective Date patient seen: Mar 19, 2017 Neurologic/Psychiatric: Reports: anxiety, emotional problems Allergies: Coded Allergies: No Known Allergies (Unverified , 06/10/15) Subjective the pt was agitated at night and got IM Objective Last 24 Hour Vital Signs Date Time Temp Pulse Resp B/P (MAP) Pulse Ox O2 Delivery O2 Flow Rate FiO2 03/20/17 19:50 97.7 86 20 143/78 100 Room Air 03/20/17 16:20 97.7 72 20 159/113 98 Room Air 03/20/17 12:00 97.3 72 20 155/75 98 Room Air 03/20/17 08:00 97.9 60 20 120/66 100 Room Air 03/20/17 04:00 98.8 60 18 155/76 96 Room Air 03/20/17 00:00 98.2 56 19 151/90 96 Room Air Intake and Output 03/20/17 03/21/17 19:00 07:00 Intake Total 1240 ml Balance 1240 ml Intake Oral 360 ml IV Total 880 ml # Voids 5 Laboratory Tests 03/20/17 06:15: White Blood Count 6.5, Red Blood Count 3.73L, Hemoglobin 12.6L, Hematocrit 37.3L , Mean Corpuscular Volume 100H, Mean Corpuscular Hemoglobin 33.7H, Mean Corpuscular Hemoglobin Concent 33.7, Red Cell Distribution Width 11.5L, Platelet Count 152, Mean Platelet Volume 5.0L, Neutrophils (%) (Auto) 55.2, Lymphocytes (%) (Auto) 35.9, Monocytes (%) (Auto) 7.0, Eosinophils (%) (Auto) 1.2, Basophils (%) (Auto) 0.7, Sodium Level 144, Potassium Level 3.1L, Chloride Level 106, Carbon Dioxide Level 28, Anion Gap 10, Blood Urea Nitrogen 19H, Creatinine 0.8, Estimat Glomerular Filtration Rate > 60, Glucose Level 89, Calcium Level 8.7 Height (Feet): 5 Height (Inches): 10.00 Weight (Pounds): 160 General Appearance: alert, confused Neurologic: alert, responsive, depressed affect Delta Warren M.D. Mar 20, 2017 20:36
--- NOTE | 2017-03-20 20:37 | Geriatric Progress Note ---
Assessment/Plan Assessment/Plan stable less agitated Discussed with: patient Subjective Interval Events 03/20/17 the pt is less agitated calmer than yesterday [id number] Mood/Memory: Reports: prior hx, anxiety, depressed feelings Geriatric Geriatric Last 24 Hour Vital Signs Date Time Temp Pulse Resp B/P (MAP) Pulse Ox O2 Delivery O2 Flow Rate FiO2 03/20/17 19:50 97.7 86 20 143/78 100 Room Air 03/20/17 16:20 97.7 72 20 159/113 98 Room Air 03/20/17 12:00 97.3 72 20 155/75 98 Room Air 03/20/17 08:00 97.9 60 20 120/66 100 Room Air 03/20/17 04:00 98.8 60 18 155/76 96 Room Air 03/20/17 00:00 98.2 56 19 151/90 96 Room Air Intake and Output 03/20/17 03/21/17 19:00 07:00 Intake Total 1240 ml Balance 1240 ml Intake Oral 360 ml IV Total 880 ml # Voids 5 Laboratory Tests Test 03/20/17 06:15 White Blood Count 6.5 K/UL (4.8-10.8) Red Blood Count 3.73 M/UL (4.70-6.10) L Hemoglobin 12.6 G/DL (14.2-18.0) L Hematocrit 37.3 % (42.0-52.0) L Mean Corpuscular Volume 100 FL (80-99) H Mean Corpuscular Hemoglobin 33.7 PG (27.0-31.0) H Mean Corpuscular Hemoglobin Concent 33.7 G/DL (32.0-36.0) Red Cell Distribution Width 11.5 % (11.6-14.8) L Platelet Count 152 K/UL (150-450) Mean Platelet Volume 5.0 FL (6.5-10.1) L Neutrophils (%) (Auto) 55.2 % (45.0-75.0) Lymphocytes (%) (Auto) 35.9 % (20.0-45.0) Monocytes (%) (Auto) 7.0 % (1.0-10.0) Eosinophils (%) (Auto) 1.2 % (0.0-3.0) Basophils (%) (Auto) 0.7 % (0.0-2.0) Sodium Level 144 MMOL/L (136-145) Potassium Level 3.1 MMOL/L (3.5-5.1) L Chloride Level 106 MMOL/L (98-107) Carbon Dioxide Level 28 MMOL/L (21-32) Anion Gap 10 mmol/L (5-15) Blood Urea Nitrogen 19 mg/dL (7-18) H Creatinine 0.8 MG/DL (0.55-1.30) Estimat Glomerular Filtration Rate > 60 mL/min (>60) Glucose Level 89 MG/DL (74-106) Calcium Level 8.7 MG/DL (8.5-10.1) Current Medications Medications (Trade) Dose Ordered Sig/Kaylin Route PRN Reason Start Time Stop Time Status Last Admin Dose Admin Acetaminophen (Tylenol) 650 mg Q4H PRN ORAL temp >100.5 F 03/17/17 16:45 04/16/17 16:44 Al Hydroxide/Mg Hydroxide (Mylanta II) 30 ml Q6H PRN ORAL dyspepsia 03/17/17 16:45 04/16/17 16:44 Darunavir (Prezista) 800 mg DAILY ORAL 03/18/17 09:00 04/17/17 08:59 03/20/17 09:25 Dextrose (Dextrose 50%) STAT PRN IV Hypoglycemia 03/17/17 16:45 04/16/17 16:44 Dextrose/Sodium Chloride 1,000 ml @ 80 mls/hr [id number] IV 03/19/17 18:00 04/18/17 17:59 03/20/17 18:08 Emtricitabine/ Tenofovir (Truvada 200/ 300mg) 1 tab DAILY ORAL 03/18/17 13:00 04/17/17 12:59 03/20/17 09:25 Haloperidol Lactate (Haldol) 5 mg Q6H PRN IM Agitation 03/19/17 18:30 04/18/17 18:29 03/19/17 22:57 Heparin Sodium (Porcine) (Heparin 5000 units/ml) 5,000 units EVERY 12 HOURS SUBQ 03/17/17 21:00 04/16/17 20:59 03/20/17 09:33 Lorazepam (Ativan 2mg/ml 1ml) 0.5 mg Q4H PRN IV For Anxiety 03/17/17 16:45 03/24/17 16:44 Lorazepam (Ativan 2mg/ml 1ml) 1 mg Q4H PRN IM Agitation Unrelieved by Haldol 03/19/17 18:30 03/26/17 18:29 Olanzapine (ZyPREXA) 10 mg BEDTIME ORAL 03/20/17 21:00 04/19/17 20:59 Ondansetron HCl (Zofran) 4 mg Q6H PRN IVP Nausea & Vomiting 03/17/17 16:45 04/16/17 16:44 Polyethylene Glycol (Miralax) 17 gm HSPRN PRN ORAL Constipation 03/17/17 16:45 04/16/17 16:44 Ritonavir (Norvir) 100 mg DAILY ORAL 03/18/17 13:00 04/17/17 12:59 03/20/17 09:25 Zolpidem Tartrate (Ambien) 5 mg HSPRN PRN ORAL Insomnia 03/17/17 16:45 03/24/17 16:44 Height (Feet): 5 Height (Inches): 10.00 Weight (Pounds): 160 Psychiatric Behavior: uncooperative Language/Speech: intact Orientation: person, place, disoriented Affect: blunt Insight: Delta Hannah M.D. Mar 20, 2017 20:37
[2017-03-21 04:00] VITALS: BP 122/58
[2017-03-21] MEDS: D5NS 1,000 ML IV SCH (06:10)
[2017-03-21 07:19] LABS: ANION GAP 4 mmol/L (5-15); CALCIUM 8.7 MG/DL (8.5-10.1); CARBON DIOXIDE 32 MMOL/L (21-32); CHLORIDE 107 MMOL/L (98-107); CREATININE 0.8 MG/DL (0.55-1.30); GLOMERULAR FILTRATION RATE > 60 mL/min (>60); POTASSIUM 3.4 MMOL/L (3.5-5.1); SODIUM 142 MMOL/L (136-145)
[2017-03-21 07:47] LABS: BASOPHILS % (AUTO) 0.9 % (0.0-2.0); EOSINOPHILS % (AUTO) 2.7 % (0.0-3.0); MEAN CORPUSCULAR HEMOGLOBIN 35.1 PG (27.0-31.0); MEAN CORPUSCULAR HGB CONC 35.4 G/DL (32.0-36.0); MEAN CORPUSCULAR VOLUME 99 FL (80-99); MONOCYTES % (AUTO) 8.1 % (1.0-10.0); NEUTROPHILS % (AUTO) 52.3 % (45.0-75.0); PLATELET COUNT 168 K/UL (150-450); RED BLOOD COUNT 3.99 M/UL (4.70-6.10); RED CELL DISTRIBUTION WIDTH 11.2 % (11.6-14.8); WHITE BLOOD COUNT 6.1 K/UL (4.8-10.8)
[2017-03-21 08:00] VITALS: BP 143/97
[2017-03-21] MEDS: Ritonavir 100mg tab ORAL SCH (09:17)
[2017-03-21] MEDS: Heparin 5000 units/ml inj SUBQ SCH (09:21)
[2017-03-21 12:00] VITALS: BP 138/90
--- NOTE | 2017-03-21 13:29 | General Progress Note ---
Assessment/Plan Problem List: (1) Dehydration ICD Codes: E86.0 - Dehydration SNOMED: 69220510 (2) Generalized weakness ICD Codes: R53.1 - Weakness SNOMED: 30158285 (3) Failure to thrive ICD Codes: FFB2623 - Reserved for [id number]-CM codable problem concepts SNOMED: 88319667 Qualifiers: Qualified Codes: R62.7 - Adult failure to thrive (4) HIV (human immunodeficiency virus infection) ICD Codes: B20 - Human immunodeficiency virus [HIV] disease SNOMED: 92932988 (5) Gilbert disease ICD Codes: E80.4 - Gilbert syndrome SNOMED: 70782733 (6) UTI (urinary tract infection) ICD Codes: N39.0 - Urinary tract infection, site not specified SNOMED: 61629007 (7) Episode of generalized weakness ICD Codes: R53.1 - Weakness SNOMED: 09430304 (8) Altered mental status ICD Codes: R41.82 - Altered mental status, unspecified SNOMED: 002940120 (9) Hyperbilirubinemia ICD Codes: E80.6 - Other disorders of bilirubin metabolism SNOMED: 87615295 Status: stable, progressing, tolerating diet Assessment/Plan ot pt diet gi f/u dcd if claer by gi Subjective Constitutional: Reports: weakness Allergies: Coded Allergies: No Known Allergies (Unverified , 06/10/15) All Systems: reviewed and negative except above Subjective in bed confused Objective Last 24 Hour Vital Signs Date Time Temp Pulse Resp B/P (MAP) Pulse Ox O2 Delivery O2 Flow Rate FiO2 03/21/17 12:00 97.7 69 19 138/90 94 Room Air 03/21/17 08:00 97.5 72 17 143/97 97 Room Air 03/21/17 04:00 98.1 110 20 122/58 97 Room Air 03/20/17 23:36 97.5 72 20 170/69 98 Room Air 03/20/17 19:50 97.7 86 20 143/78 100 Room Air 03/20/17 16:20 97.7 72 20 159/113 98 Room Air Laboratory Tests 03/21/17 05:55: White Blood Count 6.1, Red Blood Count 3.99L, Hemoglobin 14.0L, Hematocrit 39.5L , Mean Corpuscular Volume 99, Mean Corpuscular Hemoglobin 35.1H, Mean Corpuscular Hemoglobin Concent 35.4, Red Cell Distribution Width 11.2L, Platelet Count 168, Mean Platelet Volume 5.0L, Neutrophils (%) (Auto) 52.3, Lymphocytes (%) (Auto) 36.0, Monocytes (%) (Auto) 8.1, Eosinophils (%) (Auto) 2.7, Basophils (%) (Auto) 0.9, Sodium Level 142, Potassium Level 3.4L, Chloride Level 107, Carbon Dioxide Level 32, Anion Gap 4L, Blood Urea Nitrogen 10, Creatinine 0.8, Estimat Glomerular Filtration Rate > 60, Glucose Level 95, Calcium Level 8.7 Height (Feet): 5 Height (Inches): 10.00 Weight (Pounds): 160 General Appearance: lethargic EENT: normal ENT inspection Neck: normal alignment Cardiovascular: normal peripheral pulses, normal rate, regular rhythm Respiratory/Chest: chest wall non-tender, lungs clear, normal breath sounds Abdomen: normal bowel sounds, non tender, soft Extremities: normal inspection Edema: no edema noted Arm (L), no edema noted Arm (R), no edema noted Leg (L), no edema noted Leg (R), no edema noted Pedal (L), no edema noted Pedal (R), no edema noted Generalized Neurologic: motor weakness Skin: normal pigmentation, warm/dry YONATAN NATION Mar 21, 2017 13:29
--- NOTE | 2017-03-21 14:46 | GI Progress Note ---
Assessment/Plan Problems: (1) Altered mental status ICD Codes: R41.82 - Altered mental status, unspecified SNOMED: 810422685 (2) Episode of generalized weakness ICD Codes: R53.1 - Weakness SNOMED: 45488635 (3) Gilbert disease ICD Codes: E80.4 - Gilbert syndrome SNOMED: 79917120 (4) Dehydration ICD Codes: E86.0 - Dehydration SNOMED: 15058705 (5) Generalized weakness ICD Codes: R53.1 - Weakness SNOMED: 19363108 (6) Hyperbilirubinemia ICD Codes: E80.6 - Other disorders of bilirubin metabolism SNOMED: 20050583 (7) Smoking greater than 20 pack years ICD Codes: F17.210 - Nicotine dependence, cigarettes, uncomplicated SNOMED: 45928359 Status: stable Status Narrative Discussed with Dr. Harman. Assessment/Plan ST eval noted defer PEG, okay for DC per GI standpoint supportive care/symptomatic treatment calorie count diet per ST zofran prn, reglan if vomiting persists push PO 1:1 feeder fu labs Subjective Subjective limited Objective Last 24 Hour Vital Signs Date Time Temp Pulse Resp B/P (MAP) Pulse Ox O2 Delivery O2 Flow Rate FiO2 03/21/17 12:00 97.7 69 19 138/90 94 Room Air 03/21/17 08:00 97.5 72 17 143/97 97 Room Air 03/21/17 04:00 98.1 110 20 122/58 97 Room Air 03/20/17 23:36 97.5 72 20 170/69 98 Room Air 03/20/17 19:50 97.7 86 20 143/78 100 Room Air 03/20/17 16:20 97.7 72 20 159/113 98 Room Air Laboratory Tests Test 03/21/17 05:55 White Blood Count 6.1 K/UL (4.8-10.8) Red Blood Count 3.99 M/UL (4.70-6.10) L Hemoglobin 14.0 G/DL (14.2-18.0) L Hematocrit 39.5 % (42.0-52.0) L Mean Corpuscular Volume 99 FL (80-99) Mean Corpuscular Hemoglobin 35.1 PG (27.0-31.0) H Mean Corpuscular Hemoglobin Concent 35.4 G/DL (32.0-36.0) Red Cell Distribution Width 11.2 % (11.6-14.8) L Platelet Count 168 K/UL (150-450) Mean Platelet Volume 5.0 FL (6.5-10.1) L Neutrophils (%) (Auto) 52.3 % (45.0-75.0) Lymphocytes (%) (Auto) 36.0 % (20.0-45.0) Monocytes (%) (Auto) 8.1 % (1.0-10.0) Eosinophils (%) (Auto) 2.7 % (0.0-3.0) Basophils (%) (Auto) 0.9 % (0.0-2.0) Sodium Level 142 MMOL/L (136-145) Potassium Level 3.4 MMOL/L (3.5-5.1) L Chloride Level 107 MMOL/L (98-107) Carbon Dioxide Level 32 MMOL/L (21-32) Anion Gap 4 mmol/L (5-15) L Blood Urea Nitrogen 10 mg/dL (7-18) Creatinine 0.8 MG/DL (0.55-1.30) Estimat Glomerular Filtration Rate > 60 mL/min (>60) Glucose Level 95 MG/DL (74-106) Calcium Level 8.7 MG/DL (8.5-10.1) Height (Feet): 5 Height (Inches): 10.00 Weight (Pounds): 160 General Appearance: WD/WN, no apparent distress, alert Cardiovascular: normal rate Respiratory/Chest: normal breath sounds, no respiratory distress Abdominal Exam: normal bowel sounds, non tender, soft Extremities: non-tender Claudia Davalos N.Ann Mar 21, 2017 14:46
--- NOTE | 2017-03-21 14:50 | Pulmonology Progress Note ---
Assessment/Plan Problems: (1) Failure to thrive (2) Generalized weakness (3) Dehydration (4) Episode of generalized weakness (5) UTI (urinary tract infection) (6) HIV (human immunodeficiency virus infection) Assessment/Plan dc planning in progress doing much better continue current meds all notes and meds and labs reviewed. Subjective ROS Limited/Unobtainable: No Constitutional: Reports: no symptoms HEENT: Repors: no symptoms Respiratory: Reports: no symptoms Allergies: Coded Allergies: No Known Allergies (Unverified , 06/10/15) Objective Last 24 Hour Vital Signs Date Time Temp Pulse Resp B/P (MAP) Pulse Ox O2 Delivery O2 Flow Rate FiO2 03/21/17 12:00 97.7 69 19 138/90 94 Room Air 03/21/17 08:00 97.5 72 17 143/97 97 Room Air 03/21/17 04:00 98.1 110 20 122/58 97 Room Air 03/20/17 23:36 97.5 72 20 170/69 98 Room Air 03/20/17 19:50 97.7 86 20 143/78 100 Room Air 03/20/17 16:20 97.7 72 20 159/113 98 Room Air Objective General Appearance: WD/WN, no apparent distress Lines, tubes and drains: peripheral, PICC HEENT: normocephalic, anicteric Neck: non-tender, normal alignment Respiratory/Chest: chest wall non-tender, lungs clear Cardiovascular/Chest: normal rate, regular rhythm Abdomen: non tender, soft Genitourinary/Rectal: normal genital exam, normal rectal exam Extremities: normal range of motion, non-pitting Laboratory Tests 03/21/17 05:55: White Blood Count 6.1, Red Blood Count 3.99L, Hemoglobin 14.0L, Hematocrit 39.5L , Mean Corpuscular Volume 99, Mean Corpuscular Hemoglobin 35.1H, Mean Corpuscular Hemoglobin Concent 35.4, Red Cell Distribution Width 11.2L, Platelet Count 168, Mean Platelet Volume 5.0L, Neutrophils (%) (Auto) 52.3, Lymphocytes (%) (Auto) 36.0, Monocytes (%) (Auto) 8.1, Eosinophils (%) (Auto) 2.7, Basophils (%) (Auto) 0.9, Sodium Level 142, Potassium Level 3.4L, Chloride Level 107, Carbon Dioxide Level 32, Anion Gap 4L, Blood Urea Nitrogen 10, Creatinine 0.8, Estimat Glomerular Filtration Rate > 60, Glucose Level 95, Calcium Level 8.7 [place] Mar 21, 2017 14:50
--- NOTE | 2017-03-21 17:11 | Infectious Diseases Prog Note ---
Assessment/Plan Problems: (1) HIV (human immunodeficiency virus infection) Assessment & Plan: await viral load to assess his compliance with HIV meds and to rule out resistant to his current regimen , screening for syphilis is positive with titer 1;1 most likely due to previous exposure, and not an active infection , continue Truvada and boosted darunavir , follow up with HIV provider as an out patient . (2) Generalized weakness Assessment & Plan: recommend PT/OT EVAL (3) Failure to thrive Assessment & Plan: with positive screening for syphilis with titer 1:1 most likely due to previous infection and not active one . Subjective ROS Limited/Unobtainable: Yes Allergies: Coded Allergies: No Known Allergies (Unverified , 06/10/15) Subjective he was lying in bed, quiet , nonverbal, dosen't follow commands, NAD Objective Vital Signs Last 24 Hour Vital Signs Date Time Temp Pulse Resp B/P (MAP) Pulse Ox O2 Delivery O2 Flow Rate FiO2 03/21/17 12:00 97.7 69 19 138/90 94 Room Air 03/21/17 08:00 97.5 72 17 143/97 97 Room Air 03/21/17 04:00 98.1 110 20 122/58 97 Room Air 03/20/17 23:36 97.5 72 20 170/69 98 Room Air 03/20/17 19:50 97.7 86 20 143/78 100 Room Air Height (Feet): 5 Height (Inches): 10.00 Weight (Pounds): 160 General Appearance: WD/WN, no acute distress HEENT: normocephalic, atraumatic, anicteric, mucous membranes moist, PERRL Respiratory/Chest: chest wall non-tender, lungs clear, normal breath sounds, no respiratory distress, no accessory muscle use Cardiovascular: normal peripheral pulses, normal rate, regular rhythm, no gallop/murmur, no JVD Abdomen: normal bowel sounds, soft, non tender, no organomegaly, non distended , no mass, no scars Genitourinary: normal external genitalia Extremities: no cyanosis, no clubbing Skin: no rash, no lesions, no ulcers Neurologic/Psychiatric: alert, responsive Laboratory Tests Test 03/21/17 05:55 White Blood Count 6.1 K/UL (4.8-10.8) Red Blood Count 3.99 M/UL (4.70-6.10) L Hemoglobin 14.0 G/DL (14.2-18.0) L Hematocrit 39.5 % (42.0-52.0) L Mean Corpuscular Volume 99 FL (80-99) Mean Corpuscular Hemoglobin 35.1 PG (27.0-31.0) H Mean Corpuscular Hemoglobin Concent 35.4 G/DL (32.0-36.0) Red Cell Distribution Width 11.2 % (11.6-14.8) L Platelet Count 168 K/UL (150-450) Mean Platelet Volume 5.0 FL (6.5-10.1) L Neutrophils (%) (Auto) 52.3 % (45.0-75.0) Lymphocytes (%) (Auto) 36.0 % (20.0-45.0) Monocytes (%) (Auto) 8.1 % (1.0-10.0) Eosinophils (%) (Auto) 2.7 % (0.0-3.0) Basophils (%) (Auto) 0.9 % (0.0-2.0) Sodium Level 142 MMOL/L (136-145) Potassium Level 3.4 MMOL/L (3.5-5.1) L Chloride Level 107 MMOL/L (98-107) Carbon Dioxide Level 32 MMOL/L (21-32) Anion Gap 4 mmol/L (5-15) L Blood Urea Nitrogen 10 mg/dL (7-18) Creatinine 0.8 MG/DL (0.55-1.30) Estimat Glomerular Filtration Rate > 60 mL/min (>60) Glucose Level 95 MG/DL (74-106) Calcium Level 8.7 MG/DL (8.5-10.1) Caroline Gold M.D. Mar 21, 2017 17:11
--- NOTE | 2017-03-21 22:42 | General Progress Note ---
Assessment/Plan Status: stable, progressing Assessment/Plan encephalopathy haldol IM Subjective Neurologic/Psychiatric: Reports: anxiety, depressed, emotional problems Allergies: Coded Allergies: No Known Allergies (Unverified , 06/10/15) Subjective the pt was agitated at times Objective Last 24 Hour Vital Signs Date Time Temp Pulse Resp B/P (MAP) Pulse Ox O2 Delivery O2 Flow Rate FiO2 03/21/17 12:00 97.7 69 19 138/90 94 Room Air 03/21/17 08:00 97.5 72 17 143/97 97 Room Air 03/21/17 04:00 98.1 110 20 122/58 97 Room Air 03/20/17 23:36 97.5 72 20 170/69 98 Room Air Laboratory Tests 03/21/17 05:55: White Blood Count 6.1, Red Blood Count 3.99L, Hemoglobin 14.0L, Hematocrit 39.5L , Mean Corpuscular Volume 99, Mean Corpuscular Hemoglobin 35.1H, Mean Corpuscular Hemoglobin Concent 35.4, Red Cell Distribution Width 11.2L, Platelet Count 168, Mean Platelet Volume 5.0L, Neutrophils (%) (Auto) 52.3, Lymphocytes (%) (Auto) 36.0, Monocytes (%) (Auto) 8.1, Eosinophils (%) (Auto) 2.7, Basophils (%) (Auto) 0.9, Sodium Level 142, Potassium Level 3.4L, Chloride Level 107, Carbon Dioxide Level 32, Anion Gap 4L, Blood Urea Nitrogen 10, Creatinine 0.8, Estimat Glomerular Filtration Rate > 60, Glucose Level 95, Calcium Level 8.7 Height (Feet): 5 Height (Inches): 10.00 Weight (Pounds): 160 General Appearance: no apparent distress, alert, confused Delta Warren M.D. Mar 21, 2017 22:42
--- NOTE | 2017-03-24 12:38 | Discharge Summary ---
Discharge Summary Hospital Course Date of Admission Mar 17, 2017 at 16:38 Date of Discharge Mar 21, 2017 at 14:05 Admitting Diagnosis weakness/dehydration HPI Stefano Padilla is a 66 year old male who was admitted on Mar 17, 2017 at 16:38 for Weakness,Dehydration Hospital Course dc summary #[id number] Discharge Medications Continued Medications: Acetaminophen (Acetaminophen) 650 Mg/20.3 Ml Soln 650 MG ORAL Q6H PRN for Prn Headache/Temp > 101, ML 0 Refills Al Hydroxide/mg Hydroxide (Mag-Al Liquid) 30 Ml Susp 30 ML GT Aspirin (Aspirin) 81 Mg Tab.chew 81 MG PO, TAB Atazanavir Sulfate (Reyataz) 300 Mg Capsule 300 MG ORAL DAILY, CAP Cholecalciferol (Vitamin D3)* (Vitamin D*) 1,000 Unit Tablet 1000 UNIT ORAL DAILY, #30 TAB Emtricitabine/Tenofovir 200-300MG* (Truvada 200-300MG*) 1 Each Tablet 1 TAB ORAL DAILY, TAB Lisinopril (Lisinopril) 1 Gm Powder 20 MG ORAL DAILY, GM Magnesium Hydroxide (Milk of Magnesia) 30 Ml Susp 30 ML ORAL Q6HR PRN for Constipation Quetiapine Fumarate (Seroquel) 300 Mg Tablet 150 MG ORAL HS, TAB Ritonavir* (Norvir*) 100 Mg Capsule 100 MG ORAL DAILY, #60 CAP Trazodone* (Trazodone*) 150 Mg Tablet 25 MG ORAL BEDTIME, TAB Vitamin B Cmplx/Vit C/Folic AC (Nephro-Bianca Tablet) 1 Tab Tab 1 TAB ORAL DAILY, #30 TAB 0 Refills Discharge Condition Upon Discharge: stable Discharge Disposition Patient was discharged to SNF/Subacute Facility(03) Discharge Diagnoses: Discharge Instructions Discharge Instructions Special Instructions I have been assigned to complete a D/C Summary on this account. I was not involved in the patient management Saima Carbajal NP ([facility]) Mar 24, 2017 12:38
--- NOTE | 2017-03-25 04:15 | Discharge Summary 2 SIG ---
DATE OF ADMISSION: 03/17/2017 DATE OF DISCHARGE: 03/21/2017 REASON FOR ADMISSION: 66-year-old male with a history of HIV, dementia, hypertension, COPD, and psychiatric disorder, [facility]. According to nursing staff, the patient had poor appetite and was not eating for the last several weeks. The patient had no fever. No chills. No chest pain. No shortness of breath. No signs of respiratory distress. Vital signs were stable. Laboratory workup with hypernatremia. Otherwise, no leukocytosis. Stable hemoglobin and hematocrit. Stable electrolytes and LFT. EKG showed normal sinus rhythm. No acute ischemic changes. The patient was admitted for failure to thrive, dehydration, and hypernatremia. HOSPITAL STAY: The patient was admitted. ID specialist, pulmonology, GI, and psychiatric consults were requested. The patient undergone speech therapy evaluation, which demonstrated moderate oropharyngeal dysphagia. Diet started as per speech therapists recommendations with one-to-one feeding, strict aspiration precautions and speech therapist treatment for cognitive impairment and dysphagia. GI recommended to defer PEG placement at this time and provide symptomatic treatment. GI recommended push oral fluid, and provide antiemetic as needed. GI specialist cleared the patient for discharge. Infectious Disease doctor followed the patient. The patient had T-cell subset workup done, which revealed CD4 -336. 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 According to Infectious Disease doctor, likely due to the previous exposure, not an active infection. The patient was continued with ART therapy. ID recommended to follow up with HIV provider as outpatient. Supplemental oxygen and pulmonary toilet were provided as needed. Plow Shaker closely followed. Pulse oximetry was stable on room air. The patient was on the IV fluids. Renal parameters and electrolytes were closely monitored. Prior to discharge, sodium down to 142. Hypokalemia was corrected. Renal parameters were stable. Nephrotoxics were avoided. Blood pressure was managed with the current regimen and was stable. Psychiatrist seen and evaluated the patient and diagnosed the patient with encephalopathy. She optimized psychiatric medication regimen and added Zyprexa and Haldol as needed for agitation. The patient was working with physical and occupational therapists. DVT prophylaxis was provided. Bowel regimen was instituted. The patient was stable for discharge back to jail facility. FINAL DIAGNOSES: 1. Dehydration. 2. Hypernatremia secondary to dehydration, resolved. 3. Generalized weakness with failure to thrive. 4. Encephalopathy. 5. Hypertension. 6. Chronic obstructive pulmonary disease. 7. Human immunodeficiency virus status. 8. Moderate dysphagia. DISCHARGE MEDICATIONS: See medication reconciliation list. DISCHARGE INSTRUCTIONS: The patient was discharged to jail facility. FOLLOWUP: Follow up with medical doctor at the facility. Maikel Mckenzie D.O. I have been assigned to dictate discharge summary on this account and I was not involved in the patient's management. Saima Carbajal ([facility]cho[facility] N.PMurray DR: LAVONNE JOB#: [id number] CC: MAHSA
[2017-03-25 15:21] LABS: HIV RNA PCR QUANT 1.699 (.); HIV RNA PCR QUANT 50 copies/mL (.)
== END 2017-03-21 14:05 | DRG 977 ==
LOC: EDBD 16:01 → EMR 16:12 → 4E 16:38 → EDBEDREQ 17:02 → 4E 03-18 18:53
DX: E86.0 Dehydration (principal); B20 Human immunodeficiency virus [HIV] disease; G93.40 Encephalopathy, unspecified; E87.0 Hyperosmolality and hypernatremia; R47.01 Aphasia; N39.0 Urinary tract infection, site not specified; F20.0 Paranoid schizophrenia; R62.7 Adult failure to thrive; R53.1 Weakness; J44.9 Chronic obstructive pulmonary disease, unspecified; F03.90 Unspecified dementia, unspecified severity, without behavioral disturbance, psychotic disturbance, mood disturbance, and anxiety; D64.9 Anemia, unspecified; I10 Essential (primary) hypertension; R13.10 Dysphagia, unspecified; E80.4 Gilbert syndrome; F17.200 Nicotine dependence, unspecified, uncomplicated; R45.1 Restlessness and agitation; E80.6 Other disorders of bilirubin metabolism; Z23 Encounter for immunization
CPT/HCPCS: 36415; 80048; 80053; 80061; 83036; 83690; 84443; 84484; 85025; 86360; 86592; 87081; 87536; 90630; 93005; 97803; 99285; J2405